=== PATIENT | female | born 1945 | race Caucasian/White ===

== ENCOUNTER 2017-05-31 07:48 | Outpatient (CLI) | payer MEDICARE, BC | END 2017-05-31 07:49 | disposition home or self-care (01) | LOC: BICMAMMO 07:48 | PROVIDERS: ATTEND Internal Medicine | DX: Z12.31 Encounter for screening mammogram for malignant neoplasm of breast (principal); R92.1 Mammographic calcification found on diagnostic imaging of breast | CPT/HCPCS: 77063; 77067 ==

== ENCOUNTER 2017-10-23 12:49 | Outpatient (CLI) | payer MEDICARE, BC ==
--- NOTE | 2017-10-23 13:52 | CT ---
CT CHEST WITHOUT CONTRAST: HISTORY: Chronic cough. COMPARISON: Chest radiograph from 08/04/2017. FINDINGS: There is a peripheral triangular-shaped pleural-based nodule, measuring up to 1.3 cm, at the peripher al aspect of the right upper lobe, series 3, image 13. There is a calcified granuloma in the right l karen base. Small calcified granuloma in the left lung base. Small calcified right hilar lymph nodes. The sternum, manubrium, and visualized portions of the clavicles are intact. No thoracic spine compr ession fracture. The upper abdomen is unremarkable. Extensive coronary artery calcifications. No adenopathy. The thyroid is unremarkable. IMPRESSION: 1. Triangular-shaped pleural-based mass in the right upper lobe, measuring up to 1.3 cm. This is no t definitively malignant. A follow-up CT in three months is recommended. If there is any growth, bi opsy would be recommended at that time. 2. Extensive coronary artery calcifications. 3. No evidence for pneumonia. POS: TPC
== END 2017-10-23 12:50 | disposition home or self-care (01) ==
LOC: CT 12:49
PROVIDERS: ATTEND Internal Medicine
DX: R05 Cough (principal); I25.10 Atherosclerotic heart disease of native coronary artery without angina pectoris; R91.1 Solitary pulmonary nodule
CPT/HCPCS: 71250

== ENCOUNTER 2018-01-28 13:04 | Outpatient (CLI) | payer MEDICARE, BC | END 2018-01-28 13:05 | disposition home or self-care (01) | LOC: BICCT 13:04 | PROVIDERS: ATTEND Internal Medicine | DX: R91.1 Solitary pulmonary nodule (principal); G47.33 Obstructive sleep apnea (adult) (pediatric); G25.81 Restless legs syndrome | CPT/HCPCS: 71250 ==

== ENCOUNTER 2018-06-02 07:49 | Outpatient (CLI) | payer MEDICARE, BC | END 2018-06-02 07:50 | disposition home or self-care (01) | LOC: BICMAMMO 07:49 | PROVIDERS: ATTEND Internal Medicine | DX: Z12.31 Encounter for screening mammogram for malignant neoplasm of breast (principal) | CPT/HCPCS: 77063; 77067 ==

== ENCOUNTER 2018-07-28 10:20 | Outpatient (CLI) | payer MEDICARE, BC ==
[~2018-07-28 10:20] MED LIST: Iopamidol 370 76% 100 ML VIAL ONE
--- NOTE | 2018-07-28 13:00 | CT ---
CT CHEST WITH CONTRAST: INDICATIONS: Pulmonary nodule. Followup. COMPARISON: Noncontrast CT chest from 01/28/2018. FINDINGS: The prior punctate, ill-defined, anterior right middle lobe nodule has resolved. Subpleural nodular density of the superolateral right hemithorax overlying the right apex is redemonstrated, slightly de creased in volume, approximately 9 mm in diameter. No new suspicious nodule. There is respiratory motion artifact, which does produce a generalized haz iness of the bilateral pulmonary parenchyma, diffusely. [id number], no lobar consolidation, effu chris, or evidence of discrete pneumothorax. There is dense coronary artery calcium involving the lef t and right coronary arterial branches. Cardiac valvular calcification is also seen. IMPRESSION: 1. Resolved prior small, ill-defined right middle lobe nodule. 2. Slight reduction in volume of subpleural right apical pulmonary nodule. Recommend continued six-month followup. POS: LYNNETTE
== END 2018-07-28 10:21 | disposition home or self-care (01) ==
LOC: CT 10:20
PROVIDERS: ATTEND Internal Medicine
DX: R91.1 Solitary pulmonary nodule (principal); R05 Cough; G47.33 Obstructive sleep apnea (adult) (pediatric)
CPT/HCPCS: 71260; Q9967

== ENCOUNTER 2018-11-10 14:06 | Outpatient (CLI) | payer MEDICARE, BC ==
--- NOTE | 2018-11-10 14:23 | RAD ---
Exam: Chest 2 views COMPARISON: 06/07/2016, 08/04/2017 HISTORY: Dyspnea FINDINGS: Normal cardiac silhouette. Pulmonary vessels and hilum are normal. Costophrenic angles are clear. Chronic changes, without consolidation or mass. No pneumothorax or osseous abnormal bodies. IMPRESSION: No acute cardiopulmonary process.
== END 2018-11-10 14:07 | disposition home or self-care (01) ==
LOC: RAD 14:06
PROVIDERS: ATTEND Internal Medicine
DX: R06.00 Dyspnea, unspecified (principal)
CPT/HCPCS: 71046

== ENCOUNTER 2018-11-25 10:56 | Outpatient (CLI) | payer MEDICARE, BC ==
--- NOTE | 2018-11-25 11:29 | RAD ---
XR Chest Pa Lat @ [facility] HISTORY: Dyspnea COMPARISON: 11/10/2018 study. FINDINGS: Heart size and mediastinum are within normal limits. The lungs are clear of any infiltrativ e process. There are mild arthritic changes of the spine. IMPRESSION: No active intrathoracic disease. Stable chest.
== END 2018-11-25 10:57 | disposition home or self-care (01) ==
LOC: RAD 10:56
PROVIDERS: ATTEND Internal Medicine
DX: R06.00 Dyspnea, unspecified (principal)
CPT/HCPCS: 36415; 71046; 82785; 85025

== ENCOUNTER 2019-06-08 07:33 | Outpatient (CLI) | payer MEDICARE, BC ==
--- NOTE | 2019-06-08 08:32 | MMO ---
Bilateral MAMMO Bilat Screen [facility]. CLINICAL HISTORY: Patient is 73 years old and is seen for screening. The patient has no family history of breast cancer. The patient has no personal history of cancer. The patient has a history of left Excisional Biopsy at age 33 - benign. VIEWS: The views performed were: bilateral craniocaudal with tomosynthesis and bilateral mediolateral oblique with tomosynthesis. FILMS COMPARED: The present examination has been compared to prior imaging studies performed at [facility] [place] on 05/27/2015, 05/29/2016, 05/31/2017 and 06/02/2018. This study has been interpreted with the assistance of computer-aided detection. MAMMOGRAM FINDINGS: There are scattered fibroglandular densities. There are stable benign appearing calcifications seen in both breasts. There are no suspicious masses, suspicious calcifications, or new areas of architectural distortion. IMPRESSION: THERE IS NO MAMMOGRAPHIC EVIDENCE OF MALIGNANCY. A ROUTINE FOLLOW-UP MAMMOGRAM IN 1 YEAR IS RECOMMENDED. THE RESULTS OF THIS EXAM WERE SENT TO THE PATIENT. ACR BI-RADS Category 2 - Benign finding MAMMOGRAPHY NOTE: 1. A negative mammogram report should not delay a biopsy if a dominant of clinically suspicious mass is present. 2. Approximately 10% to 15% of breast cancers are not detected by mammography. 3. Adenosis and dense breasts may obscure an underlying neoplasm. Reported by: CAPO COY MD Electonically Signed: [id number]
== END 2019-06-08 07:34 | disposition home or self-care (01) ==
LOC: BICMAMMO 07:33
PROVIDERS: ATTEND Internal Medicine
DX: Z12.31 Encounter for screening mammogram for malignant neoplasm of breast (principal); Z91.89 Other specified personal risk factors, not elsewhere classified
CPT/HCPCS: 77063; 77067

== ENCOUNTER 2019-06-18 18:58 | Inpatient (IN) | payer MEDICARE, BC ==
[2019-06-18 19:27] LABS: #Basophils 0.1 thou/uL (0.0-0.2); #Eosinphils 0.2 thou/uL (0.0-0.7); #Lymphocytes 1.7 thou/uL (1.20-3.40); #Monocytes 0.5 thou/uL (0.11-0.59); #Neutrophils 4.3 thou/uL (1.40-6.50); %Basophils 1.4 % (0.0-1.0); %Eosinophils 3.4 % (0.0-10.0); %Lymphocytes 25.2 % (21.0-51.0); %Monocytes 7.2 % (0.0-10.0); %Neutrophils 62.9 % (42.0-75.0); Hemoglobin 13.9 g/dL (12.0-16.0); Mean Corpuscular HGB CONC 31.1 g/dL (32.0-36.0); Mean Corpuscular Hemoglobin 28.1 pg (27.0-31.0); Mean Corpuscular Volume 90.5 fL (78.0-98.0); Mean Platelet Volume 8.6 fL (7.4-10.4); Platelet Count 252 thou/uL (130-400); RBC Distribution Width 13.3 % (11.5-14.5); Red Blood Cell (RBC) Count 4.94 mill/uL (4.20-5.40); White Blood Cell (WBC) Count 6.9 thou/uL (4.8-10.8)
--- NOTE | 2019-06-18 19:43 | RAD ---
XR Chest 1 View Portable History: Chest pain Comparison: Radiograph November 2018 Findings: Heart size is enlarged. Lungs are hypoinflated with vascular crowding. No pneumothorax. No effusion. Impression: Lung hypoinflation with vascular crowding and spurious enlargement of the cardiac silhoue tte.
[2019-06-18 19:54] LABS: ALT (SGPT) 19 U/L (8-55); AST (SGOT) 32 U/L (5-34); Albumin 4.5 g/dL (3.4-4.8); Alkaline Phosphatase 38 U/L (40-110); Anion Gap 20 mmol/L (10-20); BUN (Urea Nitrogen) 22 mg/dL (9.8-20.1); Bilirubin, Total 0.4 mg/dL (0.2-1.2); CK (CPK) 85 U/L (29-168); Calc. Creatinine Clearance 0 mL/min (70-130); Calcium 9.8 mg/dL (7.8-10.44); Carbon Dioxide 20 mmol/L (23-31); Chloride 104 mmol/L (98-107); Estimated GFR-MDRD 57; Globulin 3.1 g/dL (2.4-3.5); Glucose 107 mg/dL (83-110); Potassium 4.7 mmol/L (3.5-5.1); Protein, Total 7.6 g/dL (6.0-8.3); Sodium 139 mmol/L (136-145)
[2019-06-18] MEDS ORDERED: Nitroglycerin 2% Ointment 1 INCH/1 GM Packet ONE (19:59)
[2019-06-18] MEDS ORDERED: Aspirin Chewable 81 MG TAB ONE (19:59)
[2019-06-18] MEDS ORDERED: Labetalol HCl 100 MG/20 ML VIAL ONE (20:40)
[2019-06-18] MEDS ORDERED: Labetalol HCl 100 MG/20 ML VIAL SLOW IVP SCH (21:00)
[2019-06-18] MEDS ORDERED: Acetaminophen 325 MG TAB PO PRN (22:31)
[2019-06-18] MEDS ORDERED: Ondansetron ODT 4 MG TAB SL PRN (22:31)
[2019-06-18] MEDS ORDERED: Ondansetron PF 4 MG/2 ML Vial IVP PRN (22:31)
[2019-06-18 22:42] VITALS: BMI 45.1
[2019-06-18 23:37] LABS: Troponin I 0.717 ng/mL (< 0.028)
[2019-06-18] MEDS ORDERED: PROVENTIL INHALER 6.7 G (200 INHALATIONS) INH PRN (23:54)
[2019-06-18] MEDS ORDERED: Magnesium 2 GM/50 ML 2 GM in Premix Bag 1 BAG IVPB SCH (23:59)
[2019-06-19] MEDS ORDERED: Nitroglycerin 0.4 MG TAB (25 Tab Bottle) SL PRN ×3 (00:04→15:34)
[2019-06-19] MEDS ORDERED: HumaLOG 300 UNITS/3 ML VIAL SC PRN ×2 (00:04)
[2019-06-19] MEDS ORDERED: Dextrose 5% in Water 1,000 ML IV PRN (00:04)
[2019-06-19] MEDS ORDERED: Dextrose 50% Abboject 50 ML SYRINGE SLOW IVP PRN (00:04)
[2019-06-19] MEDS ORDERED: Heparin 25,000 units/D5W 500 ML IVPB SCH (00:15)
[2019-06-19] MEDS ORDERED: Heparin 10,000 UNITS/ 10 ML VIAL SLOW IVP SCH (00:15)
[2019-06-19] MEDS ORDERED: Enoxaparin Sodium 100 MG/ML SYRINGE SC SCH ×2 (00:30→09:00)
[2019-06-19] MEDS ORDERED: Enoxaparin Sodium 30 MG/0.3 ML SYRINGE SC SCH ×2 (00:30→09:00)
[2019-06-19] MEDS: Dextrose 5 %-0.45 % NaCl 1,000 ML IV SCH ×2 (00:44→21:28)
[2019-06-19 01:44] LABS: Hemoglobin 12.5 g/dL (12.0-16.0); Platelet Count 215 thou/uL (130-400)
[2019-06-19 02:35] LABS: CKMB 29.1 ng/mL (0-6.6)
--- NOTE | 2019-06-19 02:47 | HP ---
This is AURELIO Mascorro dictating a report for Jhony Larson MD. TIME OF ASSESSMENT: 2299. CHIEF COMPLAINT: Chest pain. HISTORY OF PRESENT ILLNESS: Ms. Gary is a 73-year-old woman, who presents with complaints of sudden onset chest pain that started around 5:00 pm this evening. The patient states she was watching television when it came on suddenly on the left side of her chest which she describes as a pressure and reports having pain in her left arm as well. The pain also radiated to both sides of her neck and jaw. The patient states the pain was a 9/10 in severity and persisted until she arrived to the emergency department and was given nitroglycerin. She states her pain then subsided to a 5/10. She had been given 324 mg of aspirin and 1 inch of Nitro-Bid. The patient was noted to be hypertensive with a blood pressure of 256/107, which improved to 160/70 after given labetalol as well as a Nitro-Bid. The patient states that since then, her pain has been "flaring" at times, but only for seconds to a minute. She states the pain then eases off quickly. It has not reached a level of intensity that it was when it first began. The patient has a known history of coronary artery disease and underwent a coronary artery stent placement in 2002. She had an EKG done in the emergency department that showed normal sinus rhythm. She had Q-waves in V1 and V2 as well as changes consistent with LVH. Initial laboratory studies showed a normal troponin. Her second troponin was elevated at 0.717. She was also noted to have low magnesium of 1.3. Laboratory studies otherwise notable for a BUN of 22, creatinine of 0.95, GFR of 57. REVIEW OF SYSTEMS: The patient states she has been feeling well and herself recent days and denies having any diaphoresis, lightheadedness, nausea, or vomiting. Denies any abdominal pain or cramping. Reports having cramping in her legs as of recently, which she states feels like charley horses. Denies any history of electrolyte disturbances. PAST MEDICAL HISTORY: 1. CAD. 2. Obesity. 3. Diabetes mellitus. 4. Hyperlipidemia. 5. Hypertension. 6. GERD. 7. Hypothyroidism. PAST SURGICAL HISTORY: 1. Coronary artery stent in 2002 x1. 2. Hysterectomy. 3. Lumpectomy. 4. Appendectomy. 5. Tonsillectomy. SOCIAL HISTORY: The patient denies any tobacco use, alcohol consumption, or illicit drug use. ALLERGIES: NO KNOWN DRUG ALLERGIES. CURRENT MEDICATIONS: 1. Atorvastatin. 2. Praluent. 3. TriCor. 4. Valsartan. 5. Metoprolol tartrate. 6. Spironolactone. 7. Metformin. 8. Novolin. 9. Jardiance. 10. Pantoprazole. 11. Levothyroxine. 12. Ventolin HFA. 13. Montelukast. 14. Vitamin D3. 15. CoQ10. 16. Citrucel. 17. Claritin. 18. Fish oil. PHYSICAL EXAMINATION: GENERAL: The patient appears well developed, well nourished, is in no acute distress. She is found resting comfortably in bed. VITAL SIGNS: Temperature 97.9, pulse 70, respirations 16, O2 saturation 97% on room air, blood pressure 138/75. Current pain level is 4/10 in severity. HEENT: Normocephalic and atraumatic. Pupils are equal, round, and reactive to light. Sclerae without icterus. Oropharynx is clear. NECK: Supple. No lymphadenopathy. LUNGS: Clear to auscultation bilaterally without any wheezes, rales, or rhonchi. CARDIAC: Regular rate and rhythm without audible murmurs, rubs, or gallops. No chest wall tenderness to palpation. ABDOMEN: Soft, nontender, nondistended. Normoactive bowel sounds present. No guarding or rigidity. Obese. EXTREMITIES: No lower leg swelling or edema. No calf tenderness. NEUROLOGICAL: Alert and oriented x3. No neuro deficits. SKIN: Warm and dry. IMAGING DATA: Chest x-ray demonstrated lung hypoinflation with vascular crowding and heart size is enlarged. IMPRESSION AND PLAN: Ms. Gary is a 73-year-old woman, presenting with chest pain, being admitted for the followin. [id number] myocardial infarction. The patient with chest pain that resolved after nitroglycerin and Nitro-Bid. Initial troponin negative, however, second troponin has come back 0.717. Following discussion with Dr. Booker, decision was made to start Lovenox 1 mg/kg. We will continue to trend remaining troponins. The patient with mild discomfort at present, which she states has been flaring on and off since arrival to the ED. We will obtain a repeat EKG to assess for any dynamic changes. Consultation has been placed to Cardiology. 2. Hypomagnesemia. The patient with lower leg cramping, likely due to low magnesium. We will replace and continue to monitor. 3. Hypertension. Much improved. Continue to monitor blood pressure. 4. Diabetes mellitus. Monitor glucose. Insulin sliding scale initiated. 5. Hypothyroidism. Resume home medications once verified. 6. Gastrointestinal prophylaxis with pantoprazole, which she takes at home. 7. Code status, full. Surrogate decision maker is her , Vaibhav Gary. The patient's case was discussed with Dr. James, who agrees with plan of care as described above. Job ID: [id number]
[2019-06-19] MEDS: Levothyroxine Sodium 112 MCG TAB PO SCH (05:35)
[2019-06-19] MEDS: Levothyroxine Sodium 25 MCG TAB PO SCH (05:35)
[2019-06-19 08:04] LABS: Hemoglobin 12.4 g/dL (12.0-16.0); Mean Corpuscular HGB CONC 32.5 g/dL (32.0-36.0); Mean Corpuscular Hemoglobin 29.4 pg (27.0-31.0); Mean Corpuscular Volume 90.5 fL (78.0-98.0); Mean Platelet Volume 8.4 fL (7.4-10.4); Platelet Count 212 thou/uL (130-400); RBC Distribution Width 13.3 % (11.5-14.5); Red Blood Cell (RBC) Count 4.23 mill/uL (4.20-5.40)
[2019-06-19 08:31] LABS: Anion Gap 13 mmol/L (10-20); BUN (Urea Nitrogen) 19 mg/dL (9.8-20.1); Calc. Creatinine Clearance 110 mL/min (70-130); Calcium 9.5 mg/dL (7.8-10.44); Carbon Dioxide 25 mmol/L (23-31); Chloride 106 mmol/L (98-107); Estimated GFR-MDRD 58; Glucose 165 mg/dL (83-110); Magnesium 1.8 mg/dL (1.6-2.6); Potassium 4.8 mmol/L (3.5-5.1); Sodium 139 mmol/L (136-145)
[2019-06-19] MEDS ORDERED: Non-Formulary Item 1 EACH (Levothyroxine Sodium [Levothyroxine Sodium] 137 MCG) PO SCH (09:00)
[2019-06-19] MEDS: Metoprolol Tartrate 100 MG TAB PO SCH ×2 (09:00→20:46)
[2019-06-19] MEDS: Loratadine 10 MG TAB PO SCH (09:00)
[2019-06-19] MEDS: Citrucel 500 MG TAB PO SCH (09:00)
[2019-06-19] MEDS: Aspirin 325 mg Enteric Coated Tablet PO SCH (09:00)
[2019-06-19] MEDS: Valsartan 80 MG TAB PO SCH (09:00)
[2019-06-19] MEDS: Spironolactone 25 MG TAB PO SCH (09:00)
[2019-06-19] MEDS ORDERED: Iopamidol 370 76% 100 ML VIAL ONE (09:45)
[2019-06-19] MEDS ORDERED: Heparin (Artline) 1,000 ML ONE (12:18)
[2019-06-19] MEDS ORDERED: Heparin 10,000 UNITS/1 ML VIAL ONE (12:18)
[2019-06-19] MEDS ORDERED: Acetaminophen 325 MG TAB PO PRN (12:43)
[2019-06-19] MEDS ORDERED: Communication Order-Pharmacy FS SCH (14:15)
[2019-06-19] MEDS ORDERED: Midazolam HCl 2 mg/2 ml Vial ONE (14:43)
[2019-06-19] MEDS ORDERED: Fentanyl 100 MCG/2 ML VIAL ONE (14:44)
[2019-06-19] MEDS ORDERED: Protamine Sulfate 50 MG/5 ML VIAL ONE (15:07)
[2019-06-19] MEDS ORDERED: Nitroglycerin 100MG/250ML BOT 0 ML ONE (15:07)
[2019-06-19] MEDS ORDERED: Nitroglycerin 4.9 GM Bottle ONE (15:08)
[2019-06-19] MEDS ORDERED: Sodium Chloride 0.9% 200 ML IV PRN (15:34)
[2019-06-19] MEDS ORDERED: Acetaminophen/Codeine 30-300mg Tablet PO PRN ×2 (15:34)
[2019-06-19] MEDS ORDERED: Sodium Chloride 0.9% 1,000 ML IV SCH (15:45)
--- NOTE | 2019-06-19 19:00 | PDOC.HOSPP ---
- Subjective Encounter Date: 06/19/19 Encounter Time: 18:59 Subjective: The patient states that her chest pain has resolved with blood thinner. She reported pressure in her back esterday that was radiating to her jaw and her arm. She has history of silent heart attack in the past. No chest pain while waling. No SOB while walking. - Objective Vital Signs & Weight: Vital Signs (12 hours) Temp Pulse Resp BP Pulse Ox 06/19/19 15:54 97.5 F L 57 L 18 157/76 H 97 06/19/19 10:58 98.7 F 60 20 156/70 H 95 06/19/19 08:00 95 06/19/19 07:27 98.4 F 68 18 152/70 H 95 Weight Weight 297 lb 4.8 oz I&O: 06/18/19 06/19/19 06/20/19 06:59 06:59 06:59 Intake Total 440 Balance 440 Result Diagrams: 06/19/19 07:45 06/19/19 07:45 Additional Labs: Accuchecks 06/19/19 06/19/19 06/19/19 17:05 11:05 06:46 POC Glucose 168 H 148 H 161 H Hospitalist ROS - Review of Systems Constitutional: denies: fever, chills - Medication Medications: Active Medications Generic Name Dose Route Start Last Admin Trade Name Leslee PRN Reason Stop Dose Admin Acetaminophen 650 mg 06/19/19 12:43 06/19/19 13:24 Tylenol PO 650 mg Q6H PRN Administration Pain Aspirin 325 mg 06/19/19 09:00 06/19/19 09:00 Ecotrin PO 325 mg DAILY STELLA Administration Cholecalciferol 5,000 units 06/19/19 09:00 06/19/19 09:00 Vitamin D3 PO 5,000 units DAILY STELLA Administration Dextrose/Sodium Chloride 1,000 mls @ 50 mls/hr 06/19/19 00:15 06/19/19 00:44 D5 1/2 Ns IV 1,000 mls .Q20H STELLA Administration Sodium Chloride 1,000 mls @ 125 mls/hr 06/19/19 15:45 06/19/19 18:30 Normal Saline 0.9% IV 06/19/19 21:45 1,000 mls .Q8H STELLA Administration Levothyroxine Sodium 112 mcg 06/19/19 06:00 06/19/19 05:35 Synthroid PO 112 mcg 0600 STELLA Administration Levothyroxine Sodium 25 mcg 06/19/19 06:00 06/19/19 05:35 Synthroid PO 25 mcg 0600 STELLA Administration Loratadine 10 mg 06/19/19 09:00 06/19/19 09:00 Claritin PO 10 mg DAILY STELLA Administration Methylcellulose 500 mg 06/19/19 09:00 06/19/19 09:00 Citrucel PO 500 mg DAILY STELLA Administration Metoprolol Tartrate 100 mg 06/19/19 09:00 06/19/19 09:00 Lopressor PO 100 mg BID STELLA Administration Sodium Chloride 10 ml 06/19/19 09:00 06/19/19 09:01 Flush - Normal Saline IVF Not Given Q12HR STELLA Spironolactone 25 mg 06/19/19 09:00 06/19/19 09:00 Aldactone PO 25 mg DAILY STELLA Administration Valsartan 320 mg 06/19/19 09:00 06/19/19 09:00 Diovan PO 320 mg DAILY STELLA Administration - Exam General Appearance: NAD, awake alert Eye: PERRL, anicteric sclera ENT: normocephalic atraumatic, no oropharyngeal lesions Neck: supple, no JVD Heart: RRR, no murmur, no gallops, no rubs Respiratory: CTAB, no wheezes, no rales, no ronchi Gastrointestinal: soft, non-tender, non-distended, normal bowel sounds Extremities: no cyanosis, no clubbing, no edema Skin: normal turgor, no lesions, no rashes Neurological: cranial nerve grossly intact, normal sensation to touch, no focal deficits, no new deficit Hosp A/P - Plan Cardiac cath: two vessel disease LAD and RCA This is 73 year old female with past medical history of type II diabetes, hyperlipidemia, hypertension who presented with chest pain radiating to her jaw NSTEMI - troponins elevated to 3 - cardiology was consulted, cath was performed and showed 2 vessel disease LAD and RCA with largest stenosis 50%. She has stent in RCA - chest X ray normal - continue aspirin, statin, valsartan - monitor overnight and d/deepika am Hypertension Hyperlipidemia - continue metoprolol, spironolactone, valsartan Hypothyroidism - levothyroxine Code status: full code'
--- NOTE | 2019-06-19 20:51 | CON ---
DATE OF CONSULTATION: HISTORY OF PRESENT ILLNESS: Lalita Gary is a 73-year-old white female, who has had long-standing problems with labile blood pressure. In 2002, she underwent Myoview treadmill testing, which revealed a fixed anterior wall defect. In February 2003, she underwent cardiac catheterization in [place]. She had ejection fraction of 55%. The right coronary artery had a 90% mid stenosis, but otherwise unremarkable coronary arteries. She returned one month later and underwent placement of a Cypher 2.5 x 13 mm stent in the distal right posterior descending. 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 I initially evaluated her in April 2006 and she has been followed intermittently since that time. She had normal Cardiolite in November 2009 and November 2016. She also had a normal cardiac PET in January 2018. She was last seen in the office in January 2019 and only complained of chest discomfort when coughing. Five days ago, she had an episode of lower chest pressure and burning that lasted approximately 1 hour and then spontaneously resolved. Then, yesterday at approximately 5:15 p.m., she again had onset of same type discomfort, however, it did not resolve. She came to the emergency room, was given sublingual nitroglycerin, Lovenox, and eventually this resolved after approximately 6 hours. She denies any shortness of breath, nausea, vomiting, or diaphoresis with this. However, she did have bilateral jaw discomfort. PAST MEDICAL HISTORY: Hypertension, diabetes, hypercholesterolemia, obstructive sleep apnea, and obesity. Also had hypothyroidism, diabetes mellitus, GERD, and coronary artery disease. OPERATIONS: Right posterior descending artery drug-eluting stent in 2002, hysterectomy, lumpectomy, appendectomy, tonsillectomy, repair of right femoral artery pseudoaneurysm. SOCIAL HISTORY: She does not smoke. She rarely drinks. 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 FAMILY HISTORY: Father had myocardial infarction and was from a myocardial infarction. Mother had myocardial infarction, underwent CABG. REVIEW OF SYSTEMS: A 12-point review of systems is otherwise unremarkable. MEDICATIONS: 1. Praluent 75 mg q.2 weeks. 2. Atorvastatin 80 at bedtime. 3. Jardiance 25 mg daily. 4. Tricor 145 daily. 5. Insulin. 6. Levothyroxine 137 mcg daily. 7. Claritin 10 mg daily. 8. Metformin 2000 mg nightly. 9. Metoprolol 100 mg b.i.d. 10. Ranger-3 fatty acids 1000 daily. 11. Pantoprazole 40 every other day. 12. Aldactone 25 mg daily. 13. Valsartan 320 daily. 14. Ventolin 2 puffs inhaler. ALLERGIES: NONE. PHYSICAL EXAMINATION: VITAL SIGNS: BP is 156/70, pulse of 60. HEENT: PERRL. NECK: Supple. CHEST: Clear. CARDIAC: S1 and S2 normal without any S3, S4, or murmurs. Carotid upstrokes normal without bruits. Dorsalis pedis and posterior tibial pulses are intact. ABDOMEN: Obese. Normal bowel sounds. No tenderness. EXTREMITIES: Revealed no clubbing, cyanosis, or edema. NEUROLOGIC: Grossly intact. SKIN: Warm and dry. LABORATORY DATA: EKG reveals normal sinus rhythm with poor R-wave progression. CBC is unremarkable. Sodium 139, potassium 4.8, chloride 106, carbon dioxide 25, BUN 19, creatinine 0.94, CK-MB 29.1. Troponin I 3.139. TSH was normal in January. IMPRESSION: 1. [id number] myocardial infarction. 2. Status post placement of Cypher stent in the right posterior descending artery in 2002. 3. Hypertension. 4. Hypercholesterolemia. 5. Diabetes. 6. Positive family history. 7. Obesity. 8. Obstructive sleep apnea. 9. Hypothyroidism. RECOMMENDATIONS: Fast lipid profile and TSH will be ordered. It was recommended she undergo cardiac catheterization. Risks were discussed including , myocardial infarction, CVA, transfusion, limb loss, renal loss, vascular injury, etc. Risks of intervention with stent placement were discussed including , myocardial infarction, emergent CABG, restenosis, stent thrombosis, vessel perforation, etc. She has never had gastrointestinal bleeding or stroke. She does not have any upcoming surgical procedures. It is recommended that a drug- eluting stent be placed if needed. Job ID: [id number] MTDD
[2019-06-19] MEDS ORDERED: FLU VACC TS2019-20(65YR UP)/PF 180 MCG/0.5 ML SYRINGE IM ONE (21:00)
[2019-06-19] MEDS ORDERED: Fenofibrate Nanocrystallized 145 MG TAB PO SCH (21:00)
[2019-06-19] MEDS ORDERED: Atorvastatin Calcium 40 MG TAB PO SCH (21:00)
[2019-06-20] MEDS: Levothyroxine Sodium 25 MCG TAB PO SCH (05:40)
[2019-06-20] MEDS: Levothyroxine Sodium 112 MCG TAB PO SCH (05:40)
[2019-06-20 05:49] LABS: Hemoglobin 12.4 g/dL (12.0-16.0); Platelet Count 204 thou/uL (130-400)
[2019-06-20 06:11] LABS: Cardiac Risk 3.8 (Less than 4.5)
[2019-06-20 08:18] VITALS: BP 142/68
[2019-06-20] MEDS: Aspirin 325 mg Enteric Coated Tablet PO SCH (08:36)
[2019-06-20] MEDS: Metoprolol Tartrate 100 MG TAB PO SCH (08:36)
[2019-06-20] MEDS: Citrucel 500 MG TAB PO SCH (08:37)
[2019-06-20] MEDS: Valsartan 80 MG TAB PO SCH (08:37)
[2019-06-20] MEDS: Spironolactone 25 MG TAB PO SCH (08:37)
[2019-06-20] MEDS: Loratadine 10 MG TAB PO SCH (08:38)
[2019-06-20] MEDS ORDERED: Clopidogrel Bisulfate 75 MG TAB PO SCH (09:00)
[2019-06-20] MEDS ORDERED: Isosorbide Mononitrate (ER) 30 MG TAB PO SCH (09:00)
[2019-06-20 11:22] VITALS: TEMP 98.1
--- NOTE | 2019-06-20 12:09 | PDOC.CPN ---
- Subjective Date: 06/20/19 Time: 13:00 Interval history: Ms. Gary is feeling well today, very anxious to go home. Groin site looks good, no bleeding, no hematoma. She denies any anginal symptoms or shortness of breath. Denies cough. Denies N/V/D. Denies any episodes of dizziness/lightheadedness, syncope or pre-syncope. Telemetry overnight showed SR, SB HR as low as 40s, isolated episode of 2nd AVB Type I. - Review of Systems General: denies: fever/chills, weight/appetite/sleep changes, night sweats, fatigue Respiratory: denies: cough, congestion, shortness of breath, exercise intolerance Cardiovascular: denies: chest pain, palpitation, edema, paroxysmal nocturnal dyspnea, orthopnea Gastrointestinal: denies: nausea, vomiting, diarrhea, constipation, abd pain, GI bleeding Musculoskeletal: denies: pain, tenderness, stiffness, swelling, arthritis/ arthralgias - Objective Allergies/Adverse Reactions: Allergies Allergy/AdvReac Type Severity Reaction Status Date / Time No Known Allergies Allergy Verified 06/18/19 23:02 Visit Medications: Current Medications Acetaminophen (Tylenol) 650 mg PO Q6H PRN PRN Reason: Pain Last Admin: 06/19/19 13:24 Dose: 650 mg Acetaminophen/Codeine Phosphate (Tylenol #3) 1 tab PO Q4H PRN PRN Reason: Mild Pain (1-3) Acetaminophen/Codeine Phosphate (Tylenol #3) 2 tab PO Q4H PRN PRN Reason: Moderate Pain (4-6) Albuterol Sulfate (Proventil Hfa) 2 puff INH Q4H PRN PRN Reason: SOB &/or Wheezing Aspirin (Ecotrin) 325 mg PO DAILY [facility] Last Admin: 06/20/19 08:36 Dose: 325 mg Atorvastatin Calcium (Lipitor) 80 mg PO HS [facility] Last Admin: 06/19/19 20:46 Dose: 80 mg Cholecalciferol (Vitamin D3) 5,000 units PO DAILY [facility] Last Admin: 06/20/19 08:36 Dose: 5,000 units Clopidogrel Bisulfate (Plavix) 75 mg PO DAILY [facility] Last Admin: 06/20/19 08:37 Dose: 75 mg Dextrose/Water (Dextrose 50%) 25 gm SLOW IVP PRN PRN PRN Reason: Hypoglycemia Fenofibrate (Tricor) 145 mg PO HS [facility] Last Admin: 06/19/19 20:46 Dose: 145 mg Glucagon (Glucagon) 1 mg IM PRN PRN PRN Reason: Hypoglycemia Dextrose/Water (D5w) 1,000 mls @ 0 mls/hr IV .Q0M PRN PRN Reason: Hypoglycemia Sodium Chloride (Normal Saline 0.9%) 200 mls @ 0 mls/hr IV ONE PRN PRN Reason: SBP < 90 Stop: 06/20/19 15:35 Insulin Human Lispro (Humalog) 0 units SC .MILD SLIDING SCALE PRN PRN Reason: Mild Correctional Scale Insulin Human Lispro (Humalog) 0 units SC .BEDTIME SLIDING SC PRN PRN Reason: Bedtime Correctional Scale Isosorbide Mononitrate (Imdur Er) 60 mg PO DAILY [facility] Last Admin: 06/20/19 08:35 Dose: 60 mg Levothyroxine Sodium (Synthroid) 112 mcg PO 0600 [facility] Last Admin: 06/20/19 05:40 Dose: 112 mcg Levothyroxine Sodium (Synthroid) 25 mcg PO 0600 [facility] Last Admin: 06/20/19 05:40 Dose: 25 mcg Loratadine (Claritin) 10 mg PO DAILY [facility] Last Admin: 06/20/19 08:38 Dose: 10 mg Methylcellulose (Citrucel) 500 mg PO DAILY [facility] Last Admin: 06/20/19 08:37 Dose: 500 mg Metoprolol Tartrate (Lopressor) 50 mg PO BID [facility] Nitroglycerin (Nitrostat) 0.4 mg SL Q5MIN PRN PRN Reason: Chest Pain Pantoprazole Sodium (Protonix) 40 mg PO Q2D [facility] Last Admin: 06/20/19 08:40 Dose: 40 mg Sodium Chloride (Flush - Normal Saline) 10 ml IVF Q12HR [facility] Last Admin: 06/20/19 08:42 Dose: Not Given Sodium Chloride (Flush - Normal Saline) 10 ml IVF PRN PRN PRN Reason: Saline Flush Spironolactone (Aldactone) 25 mg PO DAILY [facility] Last Admin: 06/20/19 08:37 Dose: 25 mg Valsartan (Diovan) 320 mg PO DAILY [facility] Last Admin: 06/20/19 08:37 Dose: 320 mg Vital Signs & Weight: Vital Signs Temp Pulse Resp BP BP BP Pulse Ox 06/20/19 11:16 98.1 F 56 L 14 93 L 06/20/19 08:00 142/68 H 06/20/19 07:21 98 F 83 18 94 L 06/20/19 03:09 98.3 F 63 16 140/58 L 96 06/20/19 00:29 148/70 H 136/54 L Weight 290 lb 4.8 oz - Quality Measures CV meds: Beta Latoya: Yes, BOOM/ARB: Yes, Statin: Yes, ASA: Yes, Plavix/Effient/ Brilinta: Yes, Anticoagulant: No - Medication Contraindications No Anticoagulant reason: Treatment not indicated - Physical Exam General: alert & oriented x3, appears well HEENT: mucus membranes moist Neck: no JVD/HJR, no masses Cardiac: regular rate and rhythm, no murmur, S1/S2 Lungs: clear to auscultation, normal breath sounds, no wheeze, rales, rhonchi Abdomen: active bowel sounds, soft, non-tender Extremities: no cyanosis, no clubbing, no edema (right groin site s/ oozing, hematoma) Musculoskeletal: normal range of motion - Labs Result Diagrams: 06/20/19 05:33 06/20/19 05:33 Troponin/CKMB CK-MB (CK-2) 29.1 ng/mL (0-6.6) H* 06/19/19 01:28 Troponin I 3.139 ng/mL (< 0.028) H* 06/19/19 01:28 - EKG Interpretation Status: report reviewed by me EKG Method: Telemetry EKG: normal ST/T - Telemetry Sinus rhythms and dysrhythmias: sinus rhythm (isolated episode 2nd degree AVB type I) - Assessment/Plan Assessment/Plan: 1.CAD, S/P NSTEMI-s/p LHC, 2V CAD (LAD 50% lesion to mid, 50% distal; RCA 50% ostial), normal LVEF. Patent RPDA stent. No obstructive disease. Medical therapy. 2. 2nd Degree AVB Type I-isolated episode, asymptomatic. Denies any presyncope or syncopal episodes. Will decrease metoprolol, recommend outpatient EVM. Our office will call her Saturday for placement. 3. HTN-continue ARB 4. Mixed hyperlipidemia-continue statin 5. ABIMAEL 6. Obesity Okay to discharge home with above medication change. Outpatient EVM to be arranged by our office Saturday. Follow-up with Dr. Gallegos in 3 weeks or sooner if needed.
[2019-06-20] MEDS ORDERED: Metoprolol Tartrate 50 MG TAB PO SCH (21:00)
--- NOTE | 2019-06-20 21:29 | DIS ---
DATE OF ADMISSION: 06/19/2019 DATE OF DISCHARGE: 06/20/2019 DISCHARGE DIAGNOSES: 1. [place] myocardial infarction. 2. Coronary artery disease. 3. Second-degree AV block type 1, asymptomatic. 4. Hypertension. 5. Hyperlipidemia. 6. Obesity. 7. Obstructive sleep apnea. 8. Hypothyroidism. 9. History of prior coronary stent. HISTORY OF PRESENT ILLNESS: This patient is a 73-year-old female with history of coronary artery disease, who presented to the hospital with chest pain. She had a fairly abrupt onset of left-sided chest pain described as pressure, extending into the left arm, it was 9/10, initially had a very elevated blood pressure which promptly improved to 160/70 after labetalol and Nitro-Bid. She did not have immediate EKG changes. Chest x-ray showed hyperinflation with some vascular crowding, but normal size heart. Her magnesium level was slightly low as well. HOSPITAL COURSE: The patient was admitted to the hospital. Her troponins did subsequently elevate to significantly abnormal levels with the highest measured being at 3.139. She was subsequently seen in consultation by Cardiology, who performed left heart catheterization revealing nonocclusive disease including 50% mid LAD lesion, 50% distal LAD lesion, 50% RCA ostial lesion. There did not appear to be a specific culprit lesion or opportunities to significantly intervene. The patient opted for medical management. She did have asymptomatic type 1 AV block, second degree, again managed medically day after the catheterization. The patient felt well and had no further chest pains. Symptoms appeared to be improved. Total cholesterol was 142, triglycerides 185, LDL 68, HDL 37, and she was felt to be stable for discharge to home. PHYSICAL EXAMINATION: VITAL SIGNS: Temperature was 98.1, pulse 56, respirations 14, O2 saturation 93% on room air. GENERAL APPEARANCE: Morbidly obese age-appropriate female, in no distress. She was awake and alert. HEART: Regular without murmurs. LUNGS: Clear. ABDOMEN: Benign. EXTREMITIES: No edema. DISPOSITION: The patient is discharged to home. She is to have a heart healthy diet. ACTIVITY: As tolerated. MEDICATIONS: She will be on: 1. Nitroglycerin p.r.n. 2. Aspirin 325 daily. 3. Plavix 75 mg daily. 4. Isosorbide 60 mg daily. Additionally, the patient will continue with: 1. CoQ10 of 100 mg daily. 2. Citrucel 500 mg daily. 3. Cranberry 500 mg daily. 4. Fish oil 1000 mg daily. 5. B12 of 2500 mcg daily. 6. Vitamin D3 of 5000 units daily. 7. Loratadine 10 mg daily. 8. Ventolin 2 puffs q.4 hours p.r.n. 9. Protonix 40 mg q.2 days. 10. Levothyroxine 137 mcg daily. 11. 70/30, 60 units subcu at bedtime. 12. Jardiance 25 mg daily. 13. 70/30, 80 units subcu q.a.m. 14. Metformin 2000 mg extended release at bedtime. 15. Praluent 75 mg subcu q.14 days. 16. Aldactone 25 mg daily. 17. Metoprolol 50 mg b.i.d. 18. Valsartan 320 mg daily. 19. Fenofibrate 145 mg at bedtime. 20. Atorvastatin 80 mg at bedtime. She is to follow up with Caterina Deng and Dr. Sebastian Gallegos. She can return to the hospital at anytime should she have the need to do so. TIME SPENT: Total time in discharge activities was 31 minutes. Job ID: [id number]
== END 2019-06-20 14:24 | disposition home or self-care (01) | DRG 281 ==
LOC: ERS 18:58 → 2SW 22:37 → OBSVTOIN 06-19 01:42
PROVIDERS: ADMIT Internal Medicine; ATTEND Internal Medicine
PROC: 4A023N7 Measurement of Cardiac Sampling and Pressure, Left Heart, Percutaneous Approach (ICD-10-PCS; principal; 2019-06-19)
PROC: B2111ZZ Fluoroscopy of Multiple Coronary Arteries using Low Osmolar Contrast (ICD-10-PCS; 2019-06-19)
PROC: B2151ZZ Fluoroscopy of Left Heart using Low Osmolar Contrast (ICD-10-PCS; 2019-06-19)
PROC: 4A033BC Measurement of Arterial Pressure, Coronary, Percutaneous Approach (ICD-10-PCS; 2019-06-19)
PROC: 3E02340 Introduction of Influenza Vaccine into Muscle, Percutaneous Approach (ICD-10-PCS; 2019-06-19)
DX: I21.4 Non-ST elevation (NSTEMI) myocardial infarction (principal); Z68.41 Body mass index [BMI] 40.0-44.9, adult; I25.10 Atherosclerotic heart disease of native coronary artery without angina pectoris; Z23 Encounter for immunization; E66.9 Obesity, unspecified; E11.9 Type 2 diabetes mellitus without complications; I10 Essential (primary) hypertension; K21.9 Gastro-esophageal reflux disease without esophagitis; E03.9 Hypothyroidism, unspecified; E83.42 Hypomagnesemia; E78.00 Pure hypercholesterolemia, unspecified; G47.33 Obstructive sleep apnea (adult) (pediatric); I44.1 Atrioventricular block, second degree; E78.2 Mixed hyperlipidemia; Z95.5 Presence of coronary angioplasty implant and graft; Z90.710 Acquired absence of both cervix and uterus; Z90.49 Acquired absence of other specified parts of digestive tract; Z79.51 Long term (current) use of inhaled steroids; Z79.899 Other long term (current) drug therapy; Z79.4 Long term (current) use of insulin
CPT/HCPCS: 36415; 36416; 71045; 76942; 80048; 80053; 80061; 82550; 82553; 82565; 83690; 83735; 83880; 84443; 84484; 85014; 85018; 85025; 85027; 85049; 85347; 85730; 90471; 90662; 93005; 93010; 93458; 94760; 99152; C1769; G0008; J1644; J1650; J2250; J2720; J3010; J3475; Q9967

== ENCOUNTER 2019-07-29 09:59 | Outpatient (CLI) | payer MEDICARE, BC ==
--- NOTE | 2019-07-29 10:26 | CT ---
EXAM: CT of the chest without contrast HISTORY: Lung nodule follow-up COMPARISON: 01/28/2018, 10/23/2017 TECHNIQUE: Multiple contiguous axial images were obtained in a CT the chest without contrast. Coronal and sagittal reformats were performed. FINDINGS: HEART: Normal in size without focal cardiac abnormality. Calcification are seen in the coronary arter ies. MEDIASTINUM: No hilar or mediastinal lymphadenopathy. Evaluation of the mediastinum is limited withou t IV contrast. LUNGS: Calcified granulomas are seen in both lungs. No suspicious pulmonary nodules are seen.. No foc al infiltrates are seen. There is a stable small triangular area of pleural thickening in the peripheral aspect of the right apex. PLEURAL SPACE: No pneumothorax or pleural effusion. CHEST WALL SOFT TISSUES: Unremarkable OSSEOUS STRUCTURES: Unremarkable VISUALIZED SUBDIAPHRAGMATIC STRUCTURES: Unremarkable IMPRESSION: No suspicious pulmonary nodule identified
== END 2019-07-29 10:00 | disposition home or self-care (01) ==
LOC: BICCT 09:59
PROVIDERS: ATTEND Internal Medicine
DX: R91.1 Solitary pulmonary nodule (principal); G47.33 Obstructive sleep apnea (adult) (pediatric)
CPT/HCPCS: 71250

== ENCOUNTER 2020-06-10 08:08 | Outpatient (CLI) | payer MEDICARE, BC | END 2020-06-10 08:09 | disposition home or self-care (01) | LOC: BICMAMMO 08:08 | PROVIDERS: ATTEND Internal Medicine | DX: Z12.31 Encounter for screening mammogram for malignant neoplasm of breast (principal); Z91.89 Other specified personal risk factors, not elsewhere classified | CPT/HCPCS: 77063; 77067 ==

== ENCOUNTER 2020-06-17 09:04 | Outpatient (CLI) | payer MEDICARE, BC ==
--- NOTE | 2020-06-17 11:42 | RAD ---
BILATERAL HIPS: 2 views of each hip for a total of 4 images. INDICATION: Osteoarthritis. FINDINGS: Right Hip: 2 views obtained. Femoral head contour is preserved. Mild degenerative change. Left Hip: 2 views obtained. Femoral head contour is normal. Mild degenerative change. No acute abnormality. IMPRESSION: Mild symmetric degenerative change at both hips. POS: AGW
--- NOTE | 2020-06-17 12:00 | BD ---
BONE DENSITOMETRY USING DEXA: Date: 06/17/2020 HISTORY: Postmenopausal screening for osteoporosis. FINDINGS: Lumbar Spine: BMD (g/cm2) L1 1.067 T-Score: 0.7 Z-Score: 2.9 L2 1.104 T-Score: 0.7 Z-Score: 3.2 L3 1.061 T-Score: -0.2 Z-Score: 2.4 L4 1.073 T-Score: 0.1 Z-Score: 2.8 L1-L4 1.077 T-Score: 0.3 Z-Score: 2.8 Femoral Neck: 0.678 T-Score: -1.5 Z-Score: 0.6 Total Femur: 1.018 T-Score: 0.6 Z-Score: 2.5 The 10 year fracture risk for a major osteoporotic fracture is 16% and for a hip fracture is 2.9%. IMPRESSION: Osteopenia. POS: MZA
== END 2020-06-17 09:05 | disposition home or self-care (01) ==
LOC: BICMAMMO 09:04
PROVIDERS: ATTEND Internal Medicine
DX: Z13.820 Encounter for screening for osteoporosis (principal); M19.90 Unspecified osteoarthritis, unspecified site; M85.80 Other specified disorders of bone density and structure, unspecified site; M16.0 Bilateral primary osteoarthritis of hip; Z78.0 Asymptomatic menopausal state
CPT/HCPCS: 73522; 77080

== ENCOUNTER 2021-01-12 | Day surgery (SDC) | payer MEDICARE, BC | END 2021-01-12 14:30 | disposition home or self-care (01) | PROC: 4A023N7 Measurement of Cardiac Sampling and Pressure, Left Heart, Percutaneous Approach (ICD-10-PCS; principal; 2021-01-12) | PROC: B2111ZZ Fluoroscopy of Multiple Coronary Arteries using Low Osmolar Contrast (ICD-10-PCS; 2021-01-12) ==

== ENCOUNTER 2021-12-07 07:57 | Outpatient (CLI) | payer MEDICARE, BC | END 2021-12-07 07:58 | disposition home or self-care (01) | LOC: BICRAD 07:57 | PROVIDERS: ATTEND Internal Medicine | DX: Z13.83 Encounter for screening for respiratory disorder NEC (principal) | CPT/HCPCS: 71046 ==

== ENCOUNTER 2022-02-11 18:29 | Emergency (ER) | payer MEDICARE, BC ==
[2022-02-11 19:20] LABS: #Eosinphils 0.2 thou/uL (0.0-0.7); #Lymphocytes 1.5 thou/uL (1.20-3.40); #Monocytes 0.5 thou/uL (0.11-0.59); #Neutrophils 5.6 thou/uL (1.40-6.50); %Basophils 0.4 % (0.0-1.0); %Eosinophils 2.2 % (0.0-10.0); %Lymphocytes 18.7 % (21.0-51.0); %Monocytes 6.8 % (0.0-10.0); %Neutrophils 71.9 % (42.0-75.0); Hemoglobin 12.7 g/dL (12.0-16.0); Mean Corpuscular HGB CONC 30.7 g/dL (32.0-36.0); Mean Corpuscular Hemoglobin 28.2 pg (27.0-31.0); Mean Corpuscular Volume 91.9 fL (78.0-98.0); Mean Platelet Volume 8.2 fL (7.4-10.4); Platelet Count 254 thou/uL (130-400); RBC Distribution Width 14.5 % (11.5-14.5); Red Blood Cell (RBC) Count 4.52 mill/uL (4.20-5.40); White Blood Cell (WBC) Count 7.9 thou/uL (4.8-10.8)
[2022-02-11 19:41] LABS: ALT (SGPT) 14 U/L (8-55); AST (SGOT) 23 U/L (5-34); Alkaline Phosphatase 32 U/L (40-110); Anion Gap 13 mmol/L (10-20); BUN (Urea Nitrogen) 21 mg/dL (9.8-20.1); Bilirubin, Total 0.5 mg/dL (0.2-1.2); Calc. Creatinine Clearance 0 mL/min (70-130); Calcium 9.7 mg/dL (7.8-10.44); Carbon Dioxide 24 mmol/L (23-31); Chloride 106 mmol/L (98-107); Estimated GFR 57; Globulin 2.8 g/dL (2.4-3.5); Glucose 112 mg/dL (83-110); Magnesium 1.3 mg/dL (1.6-2.6); Potassium 4.7 mmol/L (3.5-5.1); Protein, Total 6.8 g/dL (5.8-8.1); Sodium 138 mmol/L (136-145)
[2022-02-11] MEDS ORDERED: Metoclopramide HCl 10 MG/2 ML VIAL ONE (20:05)
[2022-02-11] MEDS ORDERED: diphenhydrAMINE 50 MG/ML VIAL ONE (20:05)
== END 2022-02-11 21:57 | disposition home or self-care (01) ==
LOC: ERS 18:29
DX: R07.89 Other chest pain (principal); R51.9 Headache, unspecified; I10 Essential (primary) hypertension; E11.9 Type 2 diabetes mellitus without complications; K21.9 Gastro-esophageal reflux disease without esophagitis; Z95.5 Presence of coronary angioplasty implant and graft; Z79.899 Other long term (current) drug therapy; Z79.84 Long term (current) use of oral hypoglycemic drugs
CPT/HCPCS: 70450; 71045; 80053; 83735; 84484; 85025; 93005; 96361; 96374; 96375; J1200; J2765

== ENCOUNTER 2022-08-02 10:41 | Inpatient (IN) | payer MEDICARE, BC ==
[2022-08-02 11:10] LABS: #Eosinphils 0.2 thou/uL (0.0-0.7); #Monocytes 0.4 thou/uL (0.11-0.59); #Neutrophils 4.3 thou/uL (1.40-6.50); %Basophils 0.8 % (0.0-1.0); %Eosinophils 2.9 % (0.0-10.0); %Lymphocytes 16.2 % (21.0-51.0); %Monocytes 7.5 % (0.0-10.0); %Neutrophils 72.6 % (42.0-75.0); Hemoglobin 12.8 g/dL (12.0-16.0); Mean Corpuscular HGB CONC 33.5 g/dL (32.0-36.0); Mean Corpuscular Hemoglobin 30.7 pg (27.0-31.0); Mean Corpuscular Volume 91.5 fl (78.0-98.0); Platelet Count 193 10x3/uL (130-400); RBC Distribution Width 13.9 % (11.5-14.5); Red Blood Cell (RBC) Count 4.16 mill/uL (4.20-5.40); White Blood Cell (WBC) Count 5.9 10x3/uL (4.8-10.8)
[2022-08-02 11:34] LABS: ALT (SGPT) 13 U/L (8-55); AST (SGOT) 21 U/L (5-34); Albumin 3.6 g/dL (3.4-4.8); Alkaline Phosphatase 27 U/L (40-110); Anion Gap 13 mmol/L (10-20); BUN (Urea Nitrogen) 22 mg/dL (9.8-20.1); Bilirubin, Total 0.5 mg/dL (0.2-1.2); Calc. Creatinine Clearance 0 mL/min (70-130); Calcium 9.1 mg/dL (7.8-10.44); Carbon Dioxide 20 mmol/L (23-31); Chloride 107 mmol/L (98-107); Estimated GFR 60; Globulin 2.7 g/dL (2.4-3.5); Glucose 127 mg/dL (83-110); Potassium 4.9 mmol/L (3.5-5.1); Protein, Total 6.3 g/dL (5.8-8.1); Sodium 135 mmol/L (136-145)
[2022-08-02 12:10] LABS: Bilirubin Negative (Negative); Blood, Urine Negative (Negative); Clarity Clear (Clear); Glucose, Urine (Dipstick) Greater than 1000 mg/dL (Negative); Ketone, Urine Negative (Negative); Leukocyte Negative Leu/uL (Negative); Nitrite Negative (Negative); Protein, Urine (Dipstick) Negative (Neg-Trace); Specific Gravity, Urine 1.015 (1.002-1.036); Urobilinogen Normal mg/dL (Less than 2); pH, Urine 5.5 (5.0-9.0)
[2022-08-02 13:12] LABS: CKMB 2.2 ng/mL (0-6.6)
[2022-08-02] MEDS ORDERED: Aspirin Chewable 81 MG TAB ONE (13:37)
[2022-08-02] MEDS ORDERED: Dextrose 5% in Water 1,000 ML IV PRN (13:53)
[2022-08-02] MEDS ORDERED: HumaLOG 300 UNITS/3 ML VIAL SC PRN (13:53)
[2022-08-02] MEDS ORDERED: Dextrose 50% Abboject 50 ML SYRINGE SLOW IVP PRN (13:53)
[2022-08-02 15:30] LABS: Hemoglobin A1c 6.4 % (4.0-6.0)
[2022-08-02 15:51] VITALS: BMI 41.6
[2022-08-02] MEDS ORDERED: FLU VACC QS2022-23(65YR UP)/PF 240 MCG/0.7 ML SYRINGE IM ONE (16:00)
[2022-08-02 17:07] LABS: Magnesium 1.3 mg/dL (1.6-2.6)
[2022-08-03] MEDS: HumaLOG 300 UNITS/3 ML VIAL SC PRN ×3 (05:56→18:05)
[2022-08-03 06:15] LABS: Cardiac Risk 4.7 (Less than 4.5)
[2022-08-03] MEDS: Aspirin Chewable 81 MG TAB PO SCH (09:26)
[2022-08-03] MEDS ORDERED: Lactated Ringer's 500 ML IV SCH (11:45)
[2022-08-03] MEDS: Meclizine HCl 12.5 MG TAB PO PRN ×2 (12:12→16:31)
[2022-08-03] MEDS ORDERED: Spironolactone 25 MG TAB PO SCH (12:45)
[2022-08-03] MEDS ORDERED: Valsartan 80 MG TAB PO SCH (12:45)
[2022-08-03 15:17] LABS: Troponin I 0.076 ng/mL (< 0.028)
[2022-08-03] MEDS: Metoprolol Tartrate 50 MG TAB PO SCH (20:15)
[2022-08-03] MEDS ORDERED: Atorvastatin Calcium 40 MG TAB PO SCH (21:00)
[2022-08-03] MEDS ORDERED: Fenofibrate Nanocrystallized 145 MG TAB PO SCH (21:00)
[2022-08-03] MEDS ORDERED: HumuLIN 70/30 (300 UNITS/3 ML VIAL) SC SCH ×2 (21:00→23:00)
[2022-08-03] MEDS ORDERED: Loratadine 10 MG TAB PO SCH (21:00)
[2022-08-04] MEDS ORDERED: Acetaminophen 325 MG TAB PO PRN (00:22)
[2022-08-04] MEDS: Meclizine HCl 12.5 MG TAB PO PRN ×2 (00:45→11:01)
[2022-08-04 05:49] LABS: Anion Gap 12 mmol/L (10-20); BUN (Urea Nitrogen) 26 mg/dL (9.8-20.1); Calc. Creatinine Clearance 81 mL/min (70-130); Calcium 9.7 mg/dL (7.8-10.44); Carbon Dioxide 24 mmol/L (23-31); Chloride 107 mmol/L (98-107); Estimated GFR 51; Glucose 128 mg/dL (83-110); Potassium 4.3 mmol/L (3.5-5.1); Sodium 139 mmol/L (136-145)
[2022-08-04] MEDS ORDERED: Levothyroxine 150 MCG TAB PO SCH (06:00)
[2022-08-04] MEDS: Metoprolol Tartrate 50 MG TAB PO SCH (08:27)
[2022-08-04] MEDS: Aspirin Chewable 81 MG TAB PO SCH (08:28)
[2022-08-04 08:39] VITALS: BP 144/80; TEMP 97.5
[2022-08-04] MEDS ORDERED: Icosapent Ethyl 1 GM CAPSULE PO SCH (09:00)
[2022-08-04] MEDS ORDERED: Valsartan 80 MG TAB PO SCH (09:00)
[2022-08-04] MEDS ORDERED: HumuLIN 70/30 (300 UNITS/3 ML VIAL) SC SCH ×2 (09:00→21:00)
[2022-08-04] MEDS ORDERED: Spironolactone 25 MG TAB PO SCH (09:00)
[2022-08-04] MEDS ORDERED: Amlodipine 5 MG TAB PO SCH (09:00)
== END 2022-08-04 11:15 | disposition home or self-care (01) | DRG 149 ==
LOC: ERS 10:41 → 2SW 13:45 → OBSVTOIN 08-03 13:59
PROVIDERS: ADMIT Internal Medicine; ATTEND Internal Medicine
DX: R42 Dizziness and giddiness (principal); R55 Syncope and collapse; E11.9 Type 2 diabetes mellitus without complications; I10 Essential (primary) hypertension; E78.5 Hyperlipidemia, unspecified; K21.9 Gastro-esophageal reflux disease without esophagitis; E03.9 Hypothyroidism, unspecified; R77.8 Other specified abnormalities of plasma proteins; I25.10 Atherosclerotic heart disease of native coronary artery without angina pectoris; Z95.5 Presence of coronary angioplasty implant and graft; Z79.899 Other long term (current) drug therapy; Z79.4 Long term (current) use of insulin; Z79.84 Long term (current) use of oral hypoglycemic drugs; Z79.82 Long term (current) use of aspirin; Z79.890 Hormone replacement therapy; Z90.49 Acquired absence of other specified parts of digestive tract; Z90.710 Acquired absence of both cervix and uterus; Z98.890 Other specified postprocedural states
CPT/HCPCS: 36415; 36416; 71045; 80048; 80053; 80061; 81003; 82553; 83036; 83690; 83735; 83880; 84443; 84484; 85025; 90471; 90662; 93005; 93306; 94760; G0008; G0378; J1650; J1815; J7120

== ENCOUNTER 2022-08-28 07:23 | Outpatient (CLI) | payer MEDICARE, BC | END 2022-08-28 07:24 | disposition home or self-care (01) | LOC: BICCT 07:23 | PROVIDERS: ATTEND Internal Medicine | DX: R42 Dizziness and giddiness (principal) | CPT/HCPCS: 70470 ==

== ENCOUNTER 2022-08-30 10:24 | Outpatient (CLI) | payer MEDICARE, BC | END 2022-08-30 10:25 | disposition home or self-care (01) | LOC: RAD 10:24 | PROVIDERS: ATTEND Internal Medicine Critical Care Medicine | DX: R06.00 Dyspnea, unspecified (principal) | CPT/HCPCS: 71046 ==

== ENCOUNTER 2022-09-05 14:59 | Inpatient (IN) | payer MEDICARE, BC ==
[2022-09-05 15:54] LABS: #Basophils 0.1 thou/uL (0.0-0.2); #Eosinphils 0.2 thou/uL (0.0-0.7); #Lymphocytes 1.9 thou/uL (1.20-3.40); #Monocytes 0.7 thou/uL (0.11-0.59); #Neutrophils 4.7 thou/uL (1.40-6.50); %Basophils 0.7 % (0.0-1.0); %Eosinophils 3.2 % (0.0-10.0); %Lymphocytes 24.8 % (21.0-51.0); %Monocytes 9.4 % (0.0-10.0); Hemoglobin 13.1 g/dL (12.0-16.0); Mean Corpuscular HGB CONC 33.8 g/dL (32.0-36.0); Mean Corpuscular Hemoglobin 30.9 pg (27.0-31.0); Mean Corpuscular Volume 91.4 fl (78.0-98.0); Mean Platelet Volume 8.2 fL (7.4-10.4); Platelet Count 272 10x3/uL (130-400); RBC Distribution Width 13.4 % (11.5-14.5); Red Blood Cell (RBC) Count 4.23 mill/uL (4.20-5.40); White Blood Cell (WBC) Count 7.6 10x3/uL (4.8-10.8)
[2022-09-05 16:05] LABS: Prothrombin Time 13.2 sec (12.0-14.7)
[2022-09-05 16:13] LABS: ALT (SGPT) 11 U/L (8-55); AST (SGOT) 18 U/L (5-34); Albumin 4.2 g/dL (3.4-4.8); Alkaline Phosphatase 28 U/L (40-110); Anion Gap 13 mmol/L (10-20); BUN (Urea Nitrogen) 25 mg/dL (9.8-20.1); Bilirubin, Total 0.4 mg/dL (0.2-1.2); Calc. Creatinine Clearance 0 mL/min (70-130); Calcium 9.7 mg/dL (7.8-10.44); Carbon Dioxide 22 mmol/L (23-31); Chloride 108 mmol/L (98-107); Estimated GFR 56; Glucose 76 mg/dL (83-110); Potassium 4.4 mmol/L (3.5-5.1); Protein, Total 7.2 g/dL (5.8-8.1); Sodium 139 mmol/L (136-145)
[2022-09-05] MEDS ORDERED: Ondansetron PF 4 MG/2 ML Vial IVP PRN (18:32)
[2022-09-05] MEDS ORDERED: Ondansetron ODT 4 MG TAB PO PRN (18:32)
[2022-09-05] MEDS ORDERED: Meclizine HCl 12.5 MG TAB PO PRN (18:32)
[2022-09-05] MEDS ORDERED: Acetaminophen 325 MG TAB PO PRN (18:32)
[2022-09-05] MEDS ORDERED: Labetalol HCl 100 MG/20 ML VIAL SLOW IVP PRN (18:32)
[2022-09-05] MEDS ORDERED: Dextrose 50% Abboject 50 ML SYRINGE SLOW IVP PRN (18:32)
[2022-09-05] MEDS ORDERED: hydrALAZINE 20 MG/ML VIAL SLOW IVP PRN (18:32)
[2022-09-05] MEDS ORDERED: Dextrose 5% in Water 1,000 ML IV PRN (18:32)
[2022-09-05] MEDS ORDERED: Acetaminophen 650 MG Suppository PR PRN (18:32)
[2022-09-05] MEDS ORDERED: HumaLOG 300 UNITS/3 ML VIAL SC PRN (18:32)
[2022-09-05 18:59] VITALS: BMI 40.8
[2022-09-05] MEDS: Loratadine 10 MG TAB PO SCH (22:09)
[2022-09-05] MEDS: Atorvastatin Calcium 40 MG TAB PO SCH (22:09)
[2022-09-05] MEDS: HumuLIN 70/30 100 Unit/ ml Vial SC SCH (22:10)
[2022-09-05] MEDS: Metoprolol Tartrate 50 MG TAB PO SCH (22:10)
[2022-09-05] MEDS: Aspirin 81 mg Enteric Coated Tablet PO SCH (22:10)
[2022-09-05] MEDS: Fenofibrate Nanocrystallized 145 MG TAB PO SCH (22:10)
[2022-09-05] MEDS: metFORMIN XR 500 MG TAB PO SCH (22:10)
[2022-09-06] MEDS: Levothyroxine 150 MCG TAB PO SCH (05:33)
[2022-09-06 06:10] LABS: #Eosinphils 0.2 thou/uL (0.0-0.7); #Lymphocytes 1.7 thou/uL (1.20-3.40); #Monocytes 0.5 thou/uL (0.11-0.59); #Neutrophils 3.9 thou/uL (1.40-6.50); %Basophils 0.4 % (0.0-1.0); %Eosinophils 2.7 % (0.0-10.0); %Lymphocytes 26.9 % (21.0-51.0); %Monocytes 8.2 % (0.0-10.0); %Neutrophils 61.8 % (42.0-75.0); Hemoglobin 12.1 g/dL (12.0-16.0); Mean Corpuscular Hemoglobin 30.2 pg (27.0-31.0); Mean Corpuscular Volume 91.5 fl (78.0-98.0); Mean Platelet Volume 8.3 fL (7.4-10.4); Platelet Count 233 10x3/uL (130-400); RBC Distribution Width 13.5 % (11.5-14.5); White Blood Cell (WBC) Count 6.2 10x3/uL (4.8-10.8)
[2022-09-06 06:26] LABS: Anion Gap 13 mmol/L (10-20); BUN (Urea Nitrogen) 21 mg/dL (9.8-20.1); Calc. Creatinine Clearance 89 mL/min (70-130); Calcium 9.4 mg/dL (7.8-10.44); Carbon Dioxide 22 mmol/L (23-31); Cardiac Risk 2.9 (Less than 4.5); Chloride 106 mmol/L (98-107); Cholesterol 112 mg/dl (< 200 Desired); Estimated GFR 58; Glucose 141 mg/dL (83-110); HDL Cholesterol 39 mg/dL (>60 Neg Risk); LDL Cholesterol, Calculated 43 mg/dL; Potassium 4.4 mmol/L (3.5-5.1); Sodium 137 mmol/L (136-145); Triglycerides 150 mg/dL (Less than 150)
[2022-09-06] MEDS ORDERED: AST PO SCH (09:00)
[2022-09-06] MEDS ORDERED: KRILL PO SCH (09:00)
[2022-09-06] MEDS ORDERED: EPA PO SCH (09:00)
[2022-09-06] MEDS ORDERED: Cranberry 500 MG Capsule PO SCH (09:00)
[2022-09-06] MEDS ORDERED: DHA PO SCH (09:00)
[2022-09-06] MEDS ORDERED: PHOSPHO PO SCH (09:00)
[2022-09-06] MEDS ORDERED: [UNRECOGNIZED DRUG - OTHER] PO SCH (09:00)
[2022-09-06] MEDS: HumuLIN 70/30 100 Unit/ ml Vial SC SCH ×2 (09:07→21:06)
[2022-09-06] MEDS: Icosapent Ethyl 1 GM CAPSULE PO SCH (09:09)
[2022-09-06] MEDS: CO Q-10 CAPSULE 100 MG PO SCH (09:09)
[2022-09-06] MEDS: Amlodipine 5 MG TAB PO SCH (09:12)
[2022-09-06] MEDS: Cholecalciferol 1,000 UNITS (25 MCG) TAB PO SCH (09:12)
[2022-09-06] MEDS: Cyanocobalamin (Vitamin B-12) 1,000 MCG TAB PO SCH (09:12)
[2022-09-06] MEDS: Spironolactone 25 MG TAB PO SCH (09:12)
[2022-09-06] MEDS: Metoprolol Tartrate 50 MG TAB PO SCH ×2 (09:13→21:05)
[2022-09-06] MEDS: Empagliflozin 25 MG TAB PO SCH (09:13)
[2022-09-06] MEDS: Valsartan 80 MG TAB PO SCH (09:59)
[2022-09-06] MEDS: HumaLOG 300 UNITS/3 ML VIAL SC PRN ×2 (12:00→17:46)
[2022-09-06] MEDS ORDERED: Clopidogrel Bisulfate 75 MG TAB PO SCH (13:00)
[2022-09-06 13:31] LABS: INR-International Normal Ratio 1.1; Prothrombin Time 14.2 sec (12.0-14.7)
[2022-09-06 13:32] LABS: PTT 28.8 sec (22.9-36.1)
[2022-09-06 13:33] LABS: D-Dimer Test 0.46 *mcg/mL (0.27-0.43)
[2022-09-06 14:01] LABS: HEX PHOS LA Tube 1 43.6 SEC; HEX PHOS LA Tube 2 39.7 SEC
[2022-09-06] MEDS: Loratadine 10 MG TAB PO SCH (21:05)
[2022-09-06] MEDS: metFORMIN XR 500 MG TAB PO SCH (21:05)
[2022-09-06] MEDS: Atorvastatin Calcium 40 MG TAB PO SCH (21:05)
[2022-09-06] MEDS: Fenofibrate Nanocrystallized 145 MG TAB PO SCH (21:05)
[2022-09-06] MEDS: Aspirin 81 mg Enteric Coated Tablet PO SCH (21:05)
[2022-09-07] MEDS: Levothyroxine 150 MCG TAB PO SCH (05:13)
[2022-09-07] MEDS: HumuLIN 70/30 100 Unit/ ml Vial SC SCH (07:40)
[2022-09-07] MEDS ORDERED: Clopidogrel Bisulfate 75 MG TAB PO SCH (09:00)
[2022-09-07] MEDS: Icosapent Ethyl 1 GM CAPSULE PO SCH (10:12)
[2022-09-07] MEDS: Spironolactone 25 MG TAB PO SCH (10:13)
[2022-09-07] MEDS: Cholecalciferol 1,000 UNITS (25 MCG) TAB PO SCH (10:13)
[2022-09-07] MEDS: Metoprolol Tartrate 50 MG TAB PO SCH (10:14)
[2022-09-07] MEDS: Amlodipine 5 MG TAB PO SCH (10:14)
[2022-09-07] MEDS: CO Q-10 CAPSULE 100 MG PO SCH (10:16)
[2022-09-07] MEDS: Empagliflozin 25 MG TAB PO SCH (10:16)
[2022-09-07] MEDS: Cyanocobalamin (Vitamin B-12) 1,000 MCG TAB PO SCH (10:16)
[2022-09-07] MEDS: Valsartan 80 MG TAB PO SCH (10:17)
[2022-09-07] MEDS ORDERED: Iopamidol-370 76% 500 ML MDV (1 ML CHARGE) ONE (10:43)
[2022-09-07 15:19] VITALS: BP 144/70; TEMP 97
[2022-09-10] MEDS ORDERED: ALIROCUMAB 75 MG/ML SC SCH (09:00)
[2022-09-10 13:20] LABS: Cardiolipin IgA Ab 3.5 APL-U/mL (<14 Negative); Cardiolipin IgG Ab 1.1 GPL-U/mL (<10 Negative); Cardiolipin IgM Ab 1.1 MPL-U/mL (<10 Negative); EliA APS New Method **** NEW METHOD ****
== END 2022-09-07 17:10 | disposition home or self-care (01) | DRG 123 ==
LOC: ERS 14:59 → NEURO 16:35
PROVIDERS: ADMIT Emergency Medicine; ATTEND Internal Medicine
DX: H34.11 Central retinal artery occlusion, right eye (principal); I25.10 Atherosclerotic heart disease of native coronary artery without angina pectoris; E11.9 Type 2 diabetes mellitus without complications; I10 Essential (primary) hypertension; E78.5 Hyperlipidemia, unspecified; K21.9 Gastro-esophageal reflux disease without esophagitis; E03.9 Hypothyroidism, unspecified; Z95.5 Presence of coronary angioplasty implant and graft; Z90.710 Acquired absence of both cervix and uterus; Z79.84 Long term (current) use of oral hypoglycemic drugs; Z79.890 Hormone replacement therapy; Z79.82 Long term (current) use of aspirin; Z79.899 Other long term (current) drug therapy
CPT/HCPCS: 36415; 36416; 70450; 70496; 71045; 80048; 80061; 83090; 84484; 85025; 85300; 85303; 85305; 85307; 85379; 85598; 85610; 85730; 86147; 93005; 93880; 94760; J1650; J1815; Q9967

== ENCOUNTER 2022-09-12 15:17 | Emergency (ER) | payer MEDICARE, BC ==
[2022-09-12 17:37] LABS: #Eosinphils 0.2 thou/uL (0.0-0.7); #Lymphocytes 1.7 thou/uL (1.20-3.40); #Monocytes 0.6 thou/uL (0.11-0.59); #Neutrophils 4.3 thou/uL (1.40-6.50); %Basophils 0.6 % (0.0-1.0); %Eosinophils 3.5 % (0.0-10.0); %Lymphocytes 25.1 % (21.0-51.0); %Monocytes 8.6 % (0.0-10.0); %Neutrophils 62.1 % (42.0-75.0); Hemoglobin 13.4 g/dL (12.0-16.0); Mean Corpuscular HGB CONC 33.5 g/dL (32.0-36.0); Mean Corpuscular Hemoglobin 30.2 pg (27.0-31.0); Platelet Count 262 10x3/uL (130-400); RBC Distribution Width 13.3 % (11.5-14.5); Red Blood Cell (RBC) Count 4.45 mill/uL (4.20-5.40); White Blood Cell (WBC) Count 6.9 10x3/uL (4.8-10.8)
[2022-09-12 17:51] LABS: ALT (SGPT) 11 U/L (8-55); AST (SGOT) 19 U/L (5-34); Albumin 4.2 g/dL (3.4-4.8); Alkaline Phosphatase 30 U/L (40-110); Anion Gap 17 mmol/L (10-20); BUN (Urea Nitrogen) 29 mg/dL (9.8-20.1); Bilirubin, Total 0.3 mg/dL (0.2-1.2); Calc. Creatinine Clearance 0 mL/min (70-130); Calcium 9.9 mg/dL (7.8-10.44); Carbon Dioxide 21 mmol/L (23-31); Chloride 107 mmol/L (98-107); Estimated GFR 44; Globulin 3.2 g/dL (2.4-3.5); Glucose 148 mg/dL (83-110); Potassium 4.9 mmol/L (3.5-5.1); Protein, Total 7.4 g/dL (5.8-8.1); Sodium 140 mmol/L (136-145)
[2022-09-12 17:57] LABS: Prothrombin Time 13.1 sec (12.0-14.7)
[2022-09-12 17:58] LABS: PTT 25.2 sec (22.9-36.1)
== END 2022-09-12 19:36 | disposition home or self-care (01) ==
LOC: ERS 15:17
DX: R53.1 Weakness (principal); E11.9 Type 2 diabetes mellitus without complications; I10 Essential (primary) hypertension; E78.5 Hyperlipidemia, unspecified; K21.9 Gastro-esophageal reflux disease without esophagitis; E03.9 Hypothyroidism, unspecified; Z79.899 Other long term (current) drug therapy; Z79.84 Long term (current) use of oral hypoglycemic drugs; Z79.4 Long term (current) use of insulin
CPT/HCPCS: 36415; 70450; 80053; 84484; 85025; 85610; 85730; 93005

== ENCOUNTER 2023-07-03 13:39 | Outpatient (CLI) | payer MEDICARE, BC | END 2023-07-03 13:40 | disposition home or self-care (01) | LOC: SCSMRI 13:39 | PROVIDERS: ATTEND Psychiatry & Neurology Neurology | DX: M48.061 Spinal stenosis, lumbar region without neurogenic claudication (principal); M51.36 Other intervertebral disc degeneration, lumbar region; M47.816 Spondylosis without myelopathy or radiculopathy, lumbar region | CPT/HCPCS: 72148 ==

== ENCOUNTER 2023-10-23 23:08 | Inpatient (IN) | payer MEDICARE ==
[2023-10-24 00:27] LABS: #Basophils 0.05 10x3/uL (0.0-0.2); %Basophils 0.3 % (0.0-1.0); %Eosinophils 0.9 % (0.0-10.0); %Lymphocytes 5.2 % (21.0-51.0); %Monocytes 8.5 % (0.0-10.0); %Neutrophils 84.8 % (42.0-75.0); Hematocrit 41.8 % (36.0-47.0); Hemoglobin 13.3 g/dL (12.0-16.0); Mean Corpuscular HGB CONC 31.8 g/dL (32.0-36.0); Mean Corpuscular Hemoglobin 29.3 pg (27.0-31.0); Mean Corpuscular Volume 92.1 fL (78.0-98.0); Mean Platelet Volume 10.2 fL (7.4-10.4); Platelet Count 287 10x3/uL (130-400); RBC Distribution Width 14.5 % (11.5-14.5); Red Blood Cell (RBC) Count 4.54 mill/uL (4.20-5.40)
[2023-10-24] MEDS ORDERED: Ondansetron PF 4 MG/2 ML Vial ONE ×2 (00:29→04:34)
[2023-10-24] MEDS ORDERED: Morphine 4 MG/ML VIAL ONE (00:29)
[2023-10-24 00:42] LABS: ALT (SGPT) Less than 5 U/L (8-55); AST (SGOT) 13 U/L (5-34); Albumin 3.7 g/dL (3.4-4.8); Alkaline Phosphatase 31 U/L (40-110); Anion Gap 14 mmol/L (10-20); BUN (Urea Nitrogen) 25 mg/dL (9.8-20.1); Bilirubin, Total 0.6 mg/dL (0.2-1.2); Calc. Creatinine Clearance 0 mL/min (70-130); Calcium 10.4 mg/dL (7.8-10.44); Carbon Dioxide 21 mmol/L (23-31); Chloride 106 mmol/L (98-107); Estimated GFR 49; Globulin 3.4 g/dL (2.4-3.5); Glucose 164 mg/dL (83-110); Potassium 4.5 mmol/L (3.5-5.1); Protein, Total 7.1 g/dL (5.8-8.1); Sodium 136 mmol/L (136-145)
[2023-10-24 00:47] LABS: Troponin I 0.087 ng/mL (< 0.028)
[2023-10-24] MEDS ORDERED: Nitroglycerin 0.4 MG TAB 1 EACH ONE (02:10)
[2023-10-24] MEDS ORDERED: Acetaminophen 325 MG TAB PO PRN (08:01)
[2023-10-24] MEDS ORDERED: Ondansetron PF 4 MG/2 ML Vial IVP PRN (08:01)
[2023-10-24] MEDS ORDERED: Senokot S 8.6-50 MG TAB PO PRN (08:01)
[2023-10-24] MEDS ORDERED: Ondansetron ODT 4 MG TAB PO PRN (08:01)
[2023-10-24] MEDS ORDERED: Acetaminophen 650 MG Suppository PR PRN (08:01)
[2023-10-24 08:43] LABS: Critical Call Chem Troponin I NUR.SM26@0843; Troponin I 0.765 ng/mL (< 0.028)
[2023-10-24] MEDS: Sodium Chloride 0.9% 1,000 ML IV SCH (09:11)
[2023-10-24] MEDS ORDERED: Dextrose 5% in Water 1,000 ML IV PRN (09:28)
[2023-10-24] MEDS ORDERED: Glucagon 1 MG/ML KIT IM PRN (09:28)
[2023-10-24] MEDS ORDERED: Dextrose 50% Abboject 50 ML SYRINGE SLOW IVP PRN (09:28)
[2023-10-24] MEDS ORDERED: Iopamidol-370 76% 500 ML MDV (1 ML CHARGE) ONE (10:18)
[2023-10-24] MEDS ORDERED: Communication Order-Pharmacy FS SCH (10:53)
[2023-10-24 11:13] LABS: Critical Call Chem Troponin I NUR.SM26@1112; Troponin I 1.869 ng/mL (< 0.028)
[2023-10-24] MEDS ORDERED: Enoxaparin 60 MG (0.6 mL) SYRINGE ONE (11:16)
[2023-10-24] MEDS: Enoxaparin 120 MG/0.8 ML SYRINGE SC SCH (11:18)
[2023-10-24 11:22] LABS: Magnesium 1.4 mg/dL (1.6-2.6)
[2023-10-24] MEDS: Magnesium Sulfate 3 GM in Sodium Chloride 0.9% 100 ML IVPB SCH (15:37)
[2023-10-24 17:21] VITALS: BMI 38.9
[2023-10-24] MEDS: Clopidogrel Bisulfate 300 MG TAB PO SCH (20:57)
[2023-10-24] MEDS: Metoprolol Tartrate 25 MG TAB PO SCH (20:58)
[2023-10-24] MEDS: Ranolazine ER 500 MG TAB PO SCH (20:58)
[2023-10-24] MEDS: Amoxicillin/Potassium Clav 875 MG TAB PO SCH (20:58)
[2023-10-24] MEDS: Atorvastatin Calcium 40 MG TAB PO SCH (20:58)
[2023-10-24] MEDS: Famotidine 20 MG TAB PO SCH (20:58)
[2023-10-25 04:48] LABS: #Basophils 0.05 10x3/uL (0.0-0.2); %Basophils 0.7 % (0.0-1.0); %Eosinophils 2.5 % (0.0-10.0); %Lymphocytes 16.2 % (21.0-51.0); %Monocytes 11.6 % (0.0-10.0); %Neutrophils 68.6 % (42.0-75.0); Hematocrit 38.7 % (36.0-47.0); Hemoglobin 12.2 g/dL (12.0-16.0); Mean Corpuscular HGB CONC 31.5 g/dL (32.0-36.0); Mean Corpuscular Hemoglobin 28.2 pg (27.0-31.0); Mean Corpuscular Volume 89.6 fL (78.0-98.0); Mean Platelet Volume 10.5 fL (7.4-10.4); Platelet Count 260 10x3/uL (130-400); RBC Distribution Width 14.7 % (11.5-14.5); Red Blood Cell (RBC) Count 4.32 mill/uL (4.20-5.40)
[2023-10-25 05:15] LABS: Critical Call Chem Troponin I NUR.LC9@0515; Troponin I 2.797 ng/mL (< 0.028)
[2023-10-25 05:27] LABS: ALT (SGPT) 5 U/L (8-55); AST (SGOT) 22 U/L (5-34); Albumin 3.3 g/dL (3.4-4.8); Alkaline Phosphatase 26 U/L (40-110); Anion Gap 15 mmol/L (10-20); BUN (Urea Nitrogen) 27 mg/dL (9.8-20.1); Bilirubin, Total 0.6 mg/dL (0.2-1.2); Calc. Creatinine Clearance 70 mL/min (70-130); Calcium 9.4 mg/dL (7.8-10.44); Carbon Dioxide 19 mmol/L (23-31); Chloride 109 mmol/L (98-107); Estimated GFR 47; Globulin 2.6 g/dL (2.4-3.5); Glucose 161 mg/dL (83-110); Magnesium 1.6 mg/dL (1.6-2.6); Potassium 4.8 mmol/L (3.5-5.1); Protein, Total 5.9 g/dL (5.8-8.1); Sodium 138 mmol/L (136-145)
[2023-10-25] MEDS: Levothyroxine 150 MCG TAB PO SCH (06:02)
[2023-10-25] MEDS ORDERED: Clopidogrel Bisulfate 75 MG TAB PO SCH (09:00)
[2023-10-25] MEDS: Lactated Ringer's 1,000 ML IV SCH (09:24)
[2023-10-25] MEDS: Magnesium 2 GM/50 ML(in water) 2 GM in Premix 1 BAG IVPB SCH (09:25)
[2023-10-25] MEDS: Isosorbide Mononitrate 30 MG ER.TAB PO SCH (09:26)
[2023-10-25] MEDS: Clopidogrel Bisulfate 75 MG TAB PO SCH (09:26)
[2023-10-25] MEDS: Empagliflozin 25 MG TAB PO SCH (09:26)
[2023-10-25] MEDS: Amlodipine 5 MG TAB PO SCH (09:26)
[2023-10-25] MEDS: Aspirin 81 mg Enteric Coated Tablet PO SCH (09:35)
[2023-10-25 10:24] LABS: Critical Call Chem Troponin I TRENDING DOWN; Troponin I 1.987 ng/mL (< 0.028)
[2023-10-25 12:44] LABS: Critical Call Chem Troponin I TRENDING DOWN; Troponin I 1.905 ng/mL (< 0.028)
[2023-10-25] MEDS: HumaLOG 300 UNITS/3 ML VIAL SC PRN (20:46)
[2023-10-26 05:33] LABS: Anion Gap 13 mmol/L (10-20); BUN (Urea Nitrogen) 30 mg/dL (9.8-20.1); Calc. Creatinine Clearance 62 mL/min (70-130); Calcium 9.2 mg/dL (7.8-10.44); Carbon Dioxide 21 mmol/L (23-31); Chloride 108 mmol/L (98-107); Cholesterol 125 mg/dl (< 200 Desired); Estimated GFR 41; Glucose 155 mg/dL (83-110); HDL Cholesterol 31 mg/dL (>60 Neg Risk); LDL Cholesterol, Calculated 54 mg/dL; Potassium 4.4 mmol/L (3.5-5.1); Sodium 138 mmol/L (136-145); Triglycerides 202 mg/dL (Less than 150)
[2023-10-26 05:54] LABS: Hemoglobin A1c 6.3 % (4.0-6.0)
[2023-10-26] MEDS: HumaLOG 300 UNITS/3 ML VIAL SC PRN (06:20)
[2023-10-26 07:00] LABS: #Basophils 0.03 10x3/uL (0.0-0.2); %Basophils 0.5 % (0.0-1.0); %Eosinophils 3.9 % (0.0-10.0); %Lymphocytes 18.2 % (21.0-51.0); %Neutrophils 66.1 % (42.0-75.0); Hematocrit 35.6 % (36.0-47.0); Hemoglobin 11.3 g/dL (12.0-16.0); Mean Corpuscular HGB CONC 31.7 g/dL (32.0-36.0); Mean Corpuscular Hemoglobin 29.5 pg (27.0-31.0); Mean Platelet Volume 11.1 fL (7.4-10.4); Platelet Count 245 10x3/uL (130-400); RBC Distribution Width 14.6 % (11.5-14.5); Red Blood Cell (RBC) Count 3.83 mill/uL (4.20-5.40)
[2023-10-26] MEDS: Lactated Ringer's 1,000 ML IV SCH (16:23)
[2023-10-26] MEDS: Nitroglycerin 0.4 MG TAB (25 Tab Bottle) SL PRN (19:26)
[2023-10-26] MEDS: Enoxaparin 40 MG (0.4 mL) SYRINGE SC SCH (20:19)
[2023-10-26] MEDS: HumuLIN 70/30 100 Unit/ml 10 ml Vial SC SCH (20:34)
[2023-10-26] MEDS ORDERED: Non-Formulary Item 1 EACH (Insulin Aspart Prot/Insuln Asp [Novolog Mix 70-30 Flexpen] 100 SQ SCH (21:00)
[2023-10-26] MEDS ORDERED: HumuLIN 70/30 100 Unit/ml 10 ml Vial SC SCH (21:00)
[2023-10-27 07:16] LABS: Anion Gap 14 mmol/L (10-20); BUN (Urea Nitrogen) 22 mg/dL (9.8-20.1); Calc. Creatinine Clearance 89 mL/min (70-130); Carbon Dioxide 20 mmol/L (23-31); Chloride 108 mmol/L (98-107); Estimated GFR 63; Glucose 137 mg/dL (83-110); Potassium 4.3 mmol/L (3.5-5.1); Sodium 138 mmol/L (136-145)
[2023-10-27 08:09] LABS: Magnesium 1.6 mg/dL (1.6-2.6)
[2023-10-27] MEDS: Ranolazine ER 500 MG TAB PO SCH (20:53)
[2023-10-28 07:16] LABS: Anion Gap 17 mmol/L (10-20); BUN (Urea Nitrogen) 19 mg/dL (9.8-20.1); Calc. Creatinine Clearance 94 mL/min (70-130); Carbon Dioxide 18 mmol/L (23-31); Chloride 108 mmol/L (98-107); Estimated GFR 67; Glucose 133 mg/dL (83-110); Magnesium 1.4 mg/dL (1.6-2.6); Potassium 4.5 mmol/L (3.5-5.1); Sodium 138 mmol/L (136-145)
[2023-10-28 07:38] LABS: Hematocrit 36.5 % (36.0-47.0); Hemoglobin 11.7 g/dL (12.0-16.0); Platelet Count 206 10x3/uL (130-400)
[2023-10-29] MEDS: Sodium Chloride 0.9% 1,000 ML IV SCH (12:33)
[2023-10-30 08:51] VITALS: TEMP 97.7
[2023-10-30 12:36] VITALS: BP 144/77
== END 2023-10-30 16:16 | DRG 280 ==
LOC: ERS 23:08 → ERHOLD 10-24 04:53 → 2SW 10-24 16:48 → OBSVTOIN 10-25 16:44 → 2SE 10-25 17:40
PROVIDERS: ADMIT Student in an Organized Health Care Education/Training Program; ATTEND Internal Medicine
DX: I21.4 Non-ST elevation (NSTEMI) myocardial infarction (principal); I63.9 Cerebral infarction, unspecified; N17.9 Acute kidney failure, unspecified; R53.81 Other malaise; I10 Essential (primary) hypertension; E78.5 Hyperlipidemia, unspecified; I25.10 Atherosclerotic heart disease of native coronary artery without angina pectoris; E11.9 Type 2 diabetes mellitus without complications; E66.01 Morbid (severe) obesity due to excess calories; K21.9 Gastro-esophageal reflux disease without esophagitis; D72.829 Elevated white blood cell count, unspecified; E03.9 Hypothyroidism, unspecified; Z79.899 Other long term (current) drug therapy; Z79.4 Long term (current) use of insulin; Z79.890 Hormone replacement therapy; Z79.82 Long term (current) use of aspirin; Z90.710 Acquired absence of both cervix and uterus; Z90.49 Acquired absence of other specified parts of digestive tract; Z90.89 Acquired absence of other organs; Z98.890 Other specified postprocedural states; Z68.38 Body mass index [BMI] 38.0-38.9, adult
CPT/HCPCS: 36415; 36416; 70450; 70551; 71045; 71275; 74174; 80048; 80053; 80061; 83036; 83735; 83880; 84443; 84484; 85014; 85018; 85025; 85049; 93005; 93010; 93306; 93880; 96372; 96374; 96375; 96376; G0378; J1650; J1815; J2270; J2405; J3475; J7050; J7120; Q9967

== ENCOUNTER 2023-11-20 21:24 | Inpatient (IN) | payer MEDICARE ==
[2023-11-20] MEDS ORDERED: Nitroglycerin 2% Ointment 1 INCH/1 GM Packet ONE (22:56)
[2023-11-20 23:02] LABS: #Basophils 0.03 10x3/uL (0.0-0.2); %Basophils 0.3 % (0.0-1.0); %Eosinophils 0.9 % (0.0-10.0); %Lymphocytes 12.6 % (21.0-51.0); %Monocytes 9.3 % (0.0-10.0); %Neutrophils 76.2 % (42.0-75.0); Hematocrit 42.9 % (36.0-47.0); Hemoglobin 13.5 g/dL (12.0-16.0); Mean Corpuscular HGB CONC 31.5 g/dL (32.0-36.0); Mean Corpuscular Hemoglobin 29.1 pg (27.0-31.0); Mean Corpuscular Volume 92.5 fL (78.0-98.0); Mean Platelet Volume 10.4 fL (7.4-10.4); Platelet Count 298 10x3/uL (130-400); RBC Distribution Width 15.9 % (11.5-14.5); Red Blood Cell (RBC) Count 4.64 mill/uL (4.20-5.40)
[2023-11-20 23:17] LABS: ALT (SGPT) 6 U/L (8-55); AST (SGOT) 12 U/L (5-34); Albumin 3.1 g/dL (3.4-4.8); Alkaline Phosphatase 32 U/L (40-110); Anion Gap 18 mmol/L (10-20); BUN (Urea Nitrogen) 29 mg/dL (9.8-20.1); Bilirubin, Total 0.5 mg/dL (0.2-1.2); Calc. Creatinine Clearance 0 mL/min (70-130); Calcium 9.8 mg/dL (7.8-10.44); Carbon Dioxide 19 mmol/L (23-31); Chloride 104 mmol/L (98-107); Estimated GFR 36; Globulin 3.4 g/dL (2.4-3.5); Glucose 209 mg/dL (83-110); Lipase 19 U/L (8-78); Potassium 5.2 mmol/L (3.5-5.1); Protein, Total 6.5 g/dL (5.8-8.1); Sodium 136 mmol/L (136-145)
[2023-11-21 04:32] VITALS: BMI 37.2
[2023-11-21] MEDS ORDERED: Ondansetron PF 4 MG/2 ML Vial IVP PRN (08:27)
[2023-11-21] MEDS ORDERED: Acetaminophen 650 MG Suppository PR PRN (08:27)
[2023-11-21] MEDS ORDERED: Ondansetron ODT 4 MG TAB PO PRN (08:27)
[2023-11-21] MEDS ORDERED: Meclizine HCl 12.5 MG TAB PO PRN (08:30)
[2023-11-21] MEDS ORDERED: Dextrose 5% in Water 1,000 ML IV PRN (08:32)
[2023-11-21] MEDS ORDERED: Dextrose 50% Abboject 50 ML SYRINGE SLOW IVP PRN (08:32)
[2023-11-21] MEDS ORDERED: Glucagon 1 MG/ML KIT IM PRN (08:32)
[2023-11-21] MEDS ORDERED: Morphine 2 MG/ML VIAL SLOW IVP PRN (08:52)
[2023-11-21] MEDS ORDERED: Morphine 4 MG/ML VIAL SLOW IVP PRN (08:52)
[2023-11-21] MEDS: Aspirin 81 mg Enteric Coated Tablet PO SCH (09:27)
[2023-11-21] MEDS: Ranolazine ER 500 MG TAB PO SCH (09:27)
[2023-11-21] MEDS: Empagliflozin 25 MG TAB PO SCH (09:27)
[2023-11-21] MEDS: Pantoprazole DR 40 MG TAB PO SCH (09:27)
[2023-11-21] MEDS: Clopidogrel Bisulfate 75 MG TAB PO SCH (09:27)
[2023-11-21] MEDS: Cyanocobalamin (Vitamin B-12) 1,000 MCG TAB PO SCH (09:27)
[2023-11-21] MEDS: Isosorbide Mononitrate 60 MG ER.TAB PO SCH (09:27)
[2023-11-21 09:50] LABS: Troponin I 6.066 ng/mL (< 0.028)
[2023-11-21 11:03] LABS: Hematocrit 38.9 % (36.0-47.0); Hemoglobin 12.6 g/dL (12.0-16.0); Platelet Count 282 10x3/uL (130-400)
[2023-11-21] MEDS: Cholecalciferol 1,000 UNITS (25 MCG) TAB PO SCH (11:18)
[2023-11-21] MEDS: Metoprolol Tartrate 25 MG TAB PO SCH (11:18)
[2023-11-21 11:37] LABS: Troponin I 7.096 ng/mL (< 0.028)
[2023-11-21] MEDS: Heparin 10,000 UNITS/ 10 ML VIAL SLOW IVP SCH (11:51)
[2023-11-21] MEDS: Heparin 25,000 units/D5W 500 ML IVPB SCH (11:51)
[2023-11-21] MEDS: Senokot S 8.6-50 MG TAB PO SCH (16:19)
[2023-11-21] MEDS: Acetaminophen 325 MG TAB PO PRN (18:22)
[2023-11-21] MEDS: Fenofibrate Nanocrystallized 145 MG TAB PO SCH (20:33)
[2023-11-21] MEDS: CO Q-10 CAPSULE 100 MG PO SCH (20:33)
[2023-11-21] MEDS: Atorvastatin Calcium 40 MG TAB PO SCH (20:33)
[2023-11-21] MEDS: Loratadine 10 MG TAB PO SCH (20:34)
[2023-11-22 02:45] LABS: #Basophils 0.03 10x3/uL (0.0-0.2); %Basophils 0.4 % (0.0-1.0); %Eosinophils 2.2 % (0.0-10.0); %Lymphocytes 19.2 % (21.0-51.0); %Neutrophils 67.4 % (42.0-75.0); Hematocrit 36.7 % (36.0-47.0); Hemoglobin 11.6 g/dL (12.0-16.0); Mean Corpuscular HGB CONC 31.6 g/dL (32.0-36.0); Mean Corpuscular Hemoglobin 29.1 pg (27.0-31.0); Mean Platelet Volume 10.1 fL (7.4-10.4); Platelet Count 242 10x3/uL (130-400); RBC Distribution Width 15.8 % (11.5-14.5); Red Blood Cell (RBC) Count 3.99 mill/uL (4.20-5.40)
[2023-11-22 03:03] LABS: PTT 148.6 sec (22.9-36.1)
[2023-11-22 03:43] LABS: Anion Gap 13 mmol/L (10-20); BUN (Urea Nitrogen) 34 mg/dL (9.8-20.1); Calc. Creatinine Clearance 48 mL/min (70-130); Calcium 9.1 mg/dL (7.8-10.44); Carbon Dioxide 20 mmol/L (23-31); Chloride 103 mmol/L (98-107); Estimated GFR 31; Glucose 182 mg/dL (83-110); Potassium 4.9 mmol/L (3.5-5.1); Sodium 131 mmol/L (136-145)
[2023-11-22] MEDS: Levothyroxine 150 MCG TAB PO SCH (05:13)
[2023-11-22] MEDS: Lactulose 20 GM (30 mL) UDCUP PO PRN (09:22)
[2023-11-22] MEDS: Spironolactone 25 MG TAB PO SCH (09:23)
[2023-11-22] MEDS: Senokot S 8.6-50 MG TAB PO SCH (09:23)
[2023-11-22 11:20] LABS: Troponin I 4.267 ng/mL (< 0.028)
[2023-11-22] MEDS: Cranberry 500 MG Capsule PO SCH (16:49)
[2023-11-22] MEDS: Enoxaparin 120 MG/0.8 ML SYRINGE SC SCH (17:09)
[2023-11-22] MEDS: Insulin Lispro 100 UNIT/ML 10 ML VIAL SC PRN (22:18)
[2023-11-23 04:51] LABS: ALT (SGPT) 7 U/L (8-55); AST (SGOT) 16 U/L (5-34); Albumin 2.8 g/dL (3.4-4.8); Alkaline Phosphatase 27 U/L (40-110); Anion Gap 13 mmol/L (10-20); BUN (Urea Nitrogen) 30 mg/dL (9.8-20.1); Bilirubin, Total 0.7 mg/dL (0.2-1.2); Calc. Creatinine Clearance 47 mL/min (70-130); Calcium 9.3 mg/dL (7.8-10.44); Carbon Dioxide 21 mmol/L (23-31); Chloride 103 mmol/L (98-107); Estimated GFR 30; Glucose 139 mg/dL (83-110); Potassium 4.2 mmol/L (3.5-5.1); Protein, Total 5.8 g/dL (5.8-8.1); Sodium 133 mmol/L (136-145)
[2023-11-23 04:54] LABS: #Basophils 0.03 10x3/uL (0.0-0.2); %Basophils 0.4 % (0.0-1.0); %Eosinophils 1.8 % (0.0-10.0); %Lymphocytes 14.9 % (21.0-51.0); %Monocytes 9.9 % (0.0-10.0); %Neutrophils 72.1 % (42.0-75.0); Hematocrit 37.8 % (36.0-47.0); Mean Corpuscular HGB CONC 31.7 g/dL (32.0-36.0); Mean Corpuscular Hemoglobin 29.2 pg (27.0-31.0); Mean Platelet Volume 10.4 fL (7.4-10.4); Platelet Count 262 10x3/uL (130-400); RBC Distribution Width 15.6 % (11.5-14.5); Red Blood Cell (RBC) Count 4.11 mill/uL (4.20-5.40)
[2023-11-23 04:57] LABS: Troponin I 2.919 ng/mL (< 0.028)
[2023-11-23] MEDS: Rivaroxaban 2.5 MG TAB PO SCH (09:44)
[2023-11-23] MEDS: Isosorbide Mononitrate 60 MG ER.TAB PO SCH (09:44)
[2023-11-23] MEDS: Valsartan 80 MG TAB PO SCH (09:44)
[2023-11-23] MEDS: Sodium Chloride 0.9% 500 ML IV SCH (17:59)
[2023-11-23] MEDS: GoLYTELY 4,000 ml Bottle PO SCH (17:59)
[2023-11-23 19:25] LABS: Troponin I 1.637 ng/mL (< 0.028)
[2023-11-23] MEDS ORDERED: Enoxaparin 120 MG/0.8 ML SYRINGE SC SCH (21:00)
[2023-11-23] MEDS: Polyethylene Glycol 3350 17 GM Packet PO SCH (21:16)
[2023-11-24 05:13] LABS: #Basophils 0.03 10x3/uL (0.0-0.2); %Basophils 0.4 % (0.0-1.0); %Eosinophils 2.8 % (0.0-10.0); %Monocytes 9.8 % (0.0-10.0); %Neutrophils 72.5 % (42.0-75.0); Hematocrit 37.3 % (36.0-47.0); Hemoglobin 11.8 g/dL (12.0-16.0); Mean Corpuscular HGB CONC 31.6 g/dL (32.0-36.0); Mean Corpuscular Hemoglobin 29.1 pg (27.0-31.0); Mean Corpuscular Volume 91.9 fL (78.0-98.0); Mean Platelet Volume 10.6 fL (7.4-10.4); Platelet Count 239 10x3/uL (130-400); RBC Distribution Width 15.6 % (11.5-14.5); Red Blood Cell (RBC) Count 4.06 mill/uL (4.20-5.40)
[2023-11-24 05:47] LABS: ALT (SGPT) 7 U/L (8-55); AST (SGOT) 14 U/L (5-34); Albumin 2.6 g/dL (3.4-4.8); Alkaline Phosphatase 26 U/L (40-110); Anion Gap 19 mmol/L (10-20); BUN (Urea Nitrogen) 23 mg/dL (9.8-20.1); Bilirubin, Total 0.6 mg/dL (0.2-1.2); Calc. Creatinine Clearance 63 mL/min (70-130); Calcium 8.7 mg/dL (7.8-10.44); Carbon Dioxide 20 mmol/L (23-31); Chloride 102 mmol/L (98-107); Estimated GFR 42; Glucose 106 mg/dL (83-110); Potassium 4.2 mmol/L (3.5-5.1); Protein, Total 5.6 g/dL (5.8-8.1); Sodium 137 mmol/L (136-145)
[2023-11-25 05:20] LABS: #Basophils 0.04 10x3/uL (0.0-0.2); %Basophils 0.6 % (0.0-1.0); %Eosinophils 3.8 % (0.0-10.0); %Lymphocytes 16.9 % (21.0-51.0); %Monocytes 10.1 % (0.0-10.0); Hematocrit 35.5 % (36.0-47.0); Hemoglobin 11.5 g/dL (12.0-16.0); Mean Corpuscular HGB CONC 32.4 g/dL (32.0-36.0); Mean Corpuscular Hemoglobin 28.5 pg (27.0-31.0); Mean Corpuscular Volume 87.9 fL (78.0-98.0); Mean Platelet Volume 10.7 fL (7.4-10.4); Platelet Count 238 10x3/uL (130-400); RBC Distribution Width 15.9 % (11.5-14.5); Red Blood Cell (RBC) Count 4.04 mill/uL (4.20-5.40)
[2023-11-25 05:43] LABS: ALT (SGPT) 7 U/L (8-55); AST (SGOT) 12 U/L (5-34); Albumin 2.5 g/dL (3.4-4.8); Alkaline Phosphatase 25 U/L (40-110); Anion Gap 15 mmol/L (10-20); BUN (Urea Nitrogen) 21 mg/dL (9.8-20.1); Bilirubin, Total 0.6 mg/dL (0.2-1.2); Calc. Creatinine Clearance 64 mL/min (70-130); Calcium 8.7 mg/dL (7.8-10.44); Carbon Dioxide 21 mmol/L (23-31); Chloride 101 mmol/L (98-107); Estimated GFR 43; Globulin 2.8 g/dL (2.4-3.5); Glucose 144 mg/dL (83-110); Protein, Total 5.3 g/dL (5.8-8.1); Sodium 133 mmol/L (136-145)
[2023-11-25] MEDS: Icosapent Ethyl 1 GM CAPSULE PO SCH (08:38)
[2023-11-26 04:36] LABS: #Basophils 0.04 10x3/uL (0.0-0.2); %Basophils 0.5 % (0.0-1.0); %Eosinophils 2.5 % (0.0-10.0); %Lymphocytes 13.4 % (21.0-51.0); %Monocytes 7.4 % (0.0-10.0); %Neutrophils 75.6 % (42.0-75.0); Hematocrit 39.7 % (36.0-47.0); Hemoglobin 12.7 g/dL (12.0-16.0); Mean Corpuscular Hemoglobin 29.2 pg (27.0-31.0); Mean Corpuscular Volume 91.3 fL (78.0-98.0); Mean Platelet Volume 10.5 fL (7.4-10.4); Platelet Count 297 10x3/uL (130-400); RBC Distribution Width 15.8 % (11.5-14.5); Red Blood Cell (RBC) Count 4.35 mill/uL (4.20-5.40)
[2023-11-26 05:05] LABS: ALT (SGPT) 8 U/L (8-55); AST (SGOT) 12 U/L (5-34); Albumin 2.9 g/dL (3.4-4.8); Alkaline Phosphatase 28 U/L (40-110); Anion Gap 15 mmol/L (10-20); BUN (Urea Nitrogen) 23 mg/dL (9.8-20.1); Bilirubin, Total 0.7 mg/dL (0.2-1.2); Calc. Creatinine Clearance 63 mL/min (70-130); Calcium 9.1 mg/dL (7.8-10.44); Carbon Dioxide 21 mmol/L (23-31); Chloride 99 mmol/L (98-107); Estimated GFR 42; Globulin 3.3 g/dL (2.4-3.5); Glucose 155 mg/dL (83-110); Protein, Total 6.2 g/dL (5.8-8.1); Sodium 131 mmol/L (136-145)
[2023-11-27 04:52] LABS: #Basophils Less than 0.03 10x3/uL (0.0-0.2); %Basophils 0.4 % (0.0-1.0); %Eosinophils 3.7 % (0.0-10.0); %Monocytes 8.2 % (0.0-10.0); %Neutrophils 64.9 % (42.0-75.0); Hematocrit 35.8 % (36.0-47.0); Hemoglobin 11.5 g/dL (12.0-16.0); Mean Corpuscular HGB CONC 32.1 g/dL (32.0-36.0); Mean Corpuscular Hemoglobin 29.3 pg (27.0-31.0); Mean Corpuscular Volume 91.3 fL (78.0-98.0); Mean Platelet Volume 10.5 fL (7.4-10.4); Platelet Count 242 10x3/uL (130-400); Red Blood Cell (RBC) Count 3.92 mill/uL (4.20-5.40)
[2023-11-27 05:20] LABS: ALT (SGPT) 7 U/L (8-55); AST (SGOT) 11 U/L (5-34); Albumin 2.6 g/dL (3.4-4.8); Alkaline Phosphatase 25 U/L (40-110); Anion Gap 17 mmol/L (10-20); BUN (Urea Nitrogen) 27 mg/dL (9.8-20.1); Bilirubin, Total 0.8 mg/dL (0.2-1.2); Calc. Creatinine Clearance 63 mL/min (70-130); Calcium 8.6 mg/dL (7.8-10.44); Carbon Dioxide 19 mmol/L (23-31); Chloride 103 mmol/L (98-107); Estimated GFR 42; Glucose 127 mg/dL (83-110); Protein, Total 5.6 g/dL (5.8-8.1); Sodium 135 mmol/L (136-145)
[2023-11-27] MEDS: Amlodipine 5 MG TAB PO SCH (08:57)
[2023-11-28 06:17] LABS: #Basophils Less than 0.03 10x3/uL (0.0-0.2); %Basophils 0.3 % (0.0-1.0); %Eosinophils 2.2 % (0.0-10.0); %Lymphocytes 15.9 % (21.0-51.0); %Monocytes 9.7 % (0.0-10.0); %Neutrophils 71.2 % (42.0-75.0); Hematocrit 37.2 % (36.0-47.0); Hemoglobin 11.8 g/dL (12.0-16.0); Mean Corpuscular HGB CONC 31.7 g/dL (32.0-36.0); Mean Corpuscular Hemoglobin 29.1 pg (27.0-31.0); Mean Corpuscular Volume 91.9 fL (78.0-98.0); Mean Platelet Volume 10.5 fL (7.4-10.4); Platelet Count 244 10x3/uL (130-400); RBC Distribution Width 15.9 % (11.5-14.5); Red Blood Cell (RBC) Count 4.05 mill/uL (4.20-5.40)
[2023-11-28 06:37] LABS: ALT (SGPT) 7 U/L (8-55); AST (SGOT) 11 U/L (5-34); Albumin 2.6 g/dL (3.4-4.8); Alkaline Phosphatase 28 U/L (40-110); Anion Gap 15 mmol/L (10-20); BUN (Urea Nitrogen) 29 mg/dL (9.8-20.1); Bilirubin, Total 0.8 mg/dL (0.2-1.2); Calc. Creatinine Clearance 61 mL/min (70-130); Calcium 8.6 mg/dL (7.8-10.44); Carbon Dioxide 20 mmol/L (23-31); Chloride 104 mmol/L (98-107); Estimated GFR 42; Globulin 3.2 g/dL (2.4-3.5); Glucose 155 mg/dL (83-110); Potassium 4.2 mmol/L (3.5-5.1); Protein, Total 5.8 g/dL (5.8-8.1); Sodium 135 mmol/L (136-145)
[2023-11-29] MEDS ORDERED: Levothyroxine 150 MCG TAB ONE (06:00)
[2023-11-29] MEDS ORDERED: Aspirin 81 mg Enteric Coated Tablet ONE (09:20)
[2023-11-29] MEDS ORDERED: Ranolazine ER 500 MG TAB ONE (09:20)
[2023-11-29] MEDS ORDERED: Senokot S 8.6-50 MG TAB ONE (09:20)
[2023-11-29] MEDS ORDERED: Clopidogrel Bisulfate 75 MG TAB ONE (09:20)
[2023-11-29] MEDS ORDERED: Empagliflozin 25 MG TAB ONE (09:20)
[2023-11-29] MEDS ORDERED: Metoprolol Tartrate 25 MG TAB ONE (09:20)
[2023-11-29] MEDS ORDERED: Cholecalciferol 1,000 UNITS (25 MCG) TAB ONE (09:20)
[2023-11-29] MEDS ORDERED: Spironolactone 25 MG TAB ONE (09:20)
[2023-11-29] MEDS ORDERED: Rivaroxaban 2.5 MG TAB ONE (09:20)
[2023-11-29] MEDS ORDERED: Cyanocobalamin (Vitamin B-12) 1,000 MCG TAB ONE (09:20)
[2023-11-29] MEDS ORDERED: Pantoprazole DR 40 MG TAB ONE (09:20)
[2023-11-29] MEDS ORDERED: Isosorbide Mononitrate 60 MG ER.TAB ONE (09:20)
[2023-11-29] MEDS ORDERED: Amlodipine 5 MG TAB ONE (09:20)
[2023-11-29] MEDS ORDERED: Icosapent Ethyl 1 GM CAPSULE ONE (09:20)
[2023-12-02 04:53] LABS: #Basophils 0.03 10x3/uL (0.0-0.2); %Basophils 0.5 % (0.0-1.0); %Eosinophils 2.8 % (0.0-10.0); %Lymphocytes 20.8 % (21.0-51.0); %Monocytes 14.6 % (0.0-10.0); %Neutrophils 60.1 % (42.0-75.0); Hematocrit 32.7 % (36.0-47.0); Hemoglobin 10.5 g/dL (12.0-16.0); Mean Corpuscular HGB CONC 32.1 g/dL (32.0-36.0); Mean Corpuscular Hemoglobin 29.3 pg (27.0-31.0); Mean Corpuscular Volume 91.3 fL (78.0-98.0); Mean Platelet Volume 10.5 fL (7.4-10.4); Platelet Count 279 10x3/uL (130-400); RBC Distribution Width 16.3 % (11.5-14.5); Red Blood Cell (RBC) Count 3.58 mill/uL (4.20-5.40)
[2023-12-02 05:09] LABS: Anion Gap 16 mmol/L (10-20); BUN (Urea Nitrogen) 26 mg/dL (9.8-20.1); Calc. Creatinine Clearance 68 mL/min (70-130); Calcium 8.8 mg/dL (7.8-10.44); Carbon Dioxide 18 mmol/L (23-31); Chloride 105 mmol/L (98-107); Estimated GFR 48; Glucose 158 mg/dL (83-110); Sodium 135 mmol/L (136-145)
[2023-12-02 11:07] VITALS: BMI 35.9
[2023-12-02] MEDS: Benzonatate 100 MG CAP PO PRN (21:36)
[2023-12-03] MEDS: Isosorbide Mononitrate 60 MG ER.TAB PO SCH (10:55)
[2023-12-03 17:03] VITALS: BP 103/57; TEMP 98.1
== END 2023-12-03 17:50 | DRG 281 ==
LOC: ERS 21:24 → 2NO 11-21 02:28 → OBSVTOIN 11-22 09:33
PROVIDERS: ADMIT Family Medicine; ATTEND Family Medicine
DX: I21.4 Non-ST elevation (NSTEMI) myocardial infarction (principal); N17.9 Acute kidney failure, unspecified; K21.9 Gastro-esophageal reflux disease without esophagitis; E03.9 Hypothyroidism, unspecified; Z95.5 Presence of coronary angioplasty implant and graft; Z90.710 Acquired absence of both cervix and uterus; Z90.49 Acquired absence of other specified parts of digestive tract; Z90.89 Acquired absence of other organs; I25.10 Atherosclerotic heart disease of native coronary artery without angina pectoris; K59.00 Constipation, unspecified; Z79.82 Long term (current) use of aspirin; Z79.899 Other long term (current) drug therapy; E78.00 Pure hypercholesterolemia, unspecified; Z86.73 Personal history of transient ischemic attack (TIA), and cerebral infarction without residual deficits; E66.01 Morbid (severe) obesity due to excess calories; Z68.35 Body mass index [BMI] 35.0-35.9, adult; Z79.4 Long term (current) use of insulin; N18.30 Chronic kidney disease, stage 3 unspecified; I12.9 Hypertensive chronic kidney disease with stage 1 through stage 4 chronic kidney disease, or unspecified chronic kidney disease; E11.22 Type 2 diabetes mellitus with diabetic chronic kidney disease; S82.832A Other fracture of upper and lower end of left fibula, initial encounter for closed fracture; W18.30XA Fall on same level, unspecified, initial encounter
CPT/HCPCS: 36415; 36416; 71045; 80048; 80053; 83690; 84484; 85014; 85018; 85025; 85049; 85730; 93005; 93798; 96372; 96374; G0378; J1644; J1650; J1815; J7050

== ENCOUNTER 2025-03-24 02:05 | Observation (INO) | payer MEDICARE ==
[2025-03-24 02:33] LABS: #Basophils 0.07 10x3/uL (0.0-0.2); #Eosinophils 0.20 10x3/uL (0.0-0.7); #Monocytes 0.83 10x3/uL (0.11-0.59); #Neutrophils 3.94 10x3/uL (1.40-6.50); %Basophils 1.1 % (0.0-1.0); %Eosinophils 3.0 % (0.0-10.0); %Lymphocytes 23.1 % (21.0-51.0); %Monocytes 12.6 % (0.0-10.0); %Neutrophils 59.6 % (42.0-75.0); Hematocrit 43.7 % (36.0-47.0); Hemoglobin 13.6 g/dL (12.0-16.0); Mean Corpuscular Hemoglobin 29.5 pg (27.0-31.0); Mean Corpuscular Volume 94.8 fL (78.0-98.0); Platelet Count 217 10x3/uL (130-400); Red Blood Cell (RBC) Count 4.61 mill/uL (4.20-5.40); White Blood Cell (WBC) Count 6.61 10x3/uL (4.8-10.8)
[2025-03-24 02:49] LABS: ALT (SGPT) Less than 7 U/L (Less than 34); AST (SGOT) 18 U/L (11-34); Albumin 3.5 g/dL (3.1-4.5); Alkaline Phosphatase 46 U/L (40-110); Anion Gap 18 mmol/L (10-20); BUN (Urea Nitrogen) 34 mg/dL (9.8-20.1); Bilirubin, Total 0.4 mg/dL (0.3-1.2); Calc. Creatinine Clearance 0 mL/min (70-130); Calcium 9.8 mg/dL (7.8-10.44); Carbon Dioxide 22 mmol/L (23-31); Chloride 104 mmol/L (98-107); Globulin 3.2 g/dL (2.4-3.5); Glucose 196 mg/dL (83-110); Lipase 19 U/L (8-78); Potassium 4.7 mmol/L (3.5-5.1); Sodium 139 mmol/L (136-145)
[2025-03-24 09:09] LABS: CAUTI Indications for Culture Pelvic or flank pain; Glucose, Urine (Dipstick) Greater than 1000 mg/dL (Negative); Leukocyte 500 Leu/uL (Negative); Protein, Urine (Dipstick) Negative (Neg-Trace); RBC/HPF 0-3 HPF (0-3); Specific Gravity, Urine 1.007 (1.002-1.036); WBC/HPF Greater than 50 HPF (0-3)
[2025-03-24 09:12] LABS: Bacteria/HPF 1+ HPF (None Seen)
[2025-03-24 09:13] LABS: Urine Culture Reflex Yes Yes
[2025-03-24] MEDS ORDERED: Nystatin Powder 15 GM BOT TOP PRN (09:31)
[2025-03-24] MEDS ORDERED: Glucagon 1 MG/ML KIT IM PRN (09:34)
[2025-03-24] MEDS ORDERED: Dextrose 50% Abboject 50 ML SYRINGE SLOW IVP PRN (09:34)
[2025-03-24] MEDS ORDERED: Nitroglycerin 0.4 MG TAB (25 Tab Bottle) SL PRN ×2 (09:34→17:05)
[2025-03-24] MEDS ORDERED: Ondansetron PF 4 MG/2 ML Vial IVP PRN (09:34)
[2025-03-24] MEDS ORDERED: Acetaminophen 325 MG TAB PO PRN (09:34)
[2025-03-24] MEDS ORDERED: Senokot S 8.6-50 MG TAB PO PRN (09:34)
[2025-03-24] MEDS ORDERED: Electrolyte Replacement Protocol 1 EACH FS SCH (09:45)
[2025-03-24] MEDS ORDERED: cefTRIAXone (ROCEPHIN) 1 GM VIAL ONE (09:48)
[2025-03-24] MEDS: cefTRIAXone\\ROCEPHIN 1 GM in Sodium Chloride 0.9% 100 ML IVPB SCH (09:56)
[2025-03-24] MEDS ORDERED: Potassium Chloride 20 MEQ in Premix 1 BAG IVPB PRN (10:00)
[2025-03-24] MEDS ORDERED: PHOS-NAK 1 PKT PACK PO PRN (10:00)
[2025-03-24] MEDS ORDERED: Pantoprazole 40 MG DR.TAB ONE (10:18)
[2025-03-24] MEDS: Pantoprazole 40 MG DR.TAB PO SCH (10:25)
[2025-03-24] MEDS: Isosorbide Mononitrate 60 MG ER.TAB PO SCH (10:25)
[2025-03-24 12:22] LABS: Magnesium 1.6 mg/dL (1.6-2.6)
[2025-03-24 14:23] VITALS: BMI 36.2
[2025-03-24] MEDS ORDERED: Communication Order-Pharmacy FS SCH (15:30)
[2025-03-24] MEDS ORDERED: Adenosine 6 mg (2 mL) VIAL ONE (15:37)
[2025-03-24] MEDS ORDERED: Heparin 10,000 UNITS/ 10 ML VIAL ONE (15:37)
[2025-03-24] MEDS ORDERED: Nitroglycerin 50 MG/250 ML BOT 250 ML ONE (15:38)
[2025-03-24] MEDS ORDERED: PHENYLEPHRINE-NS 100 MCG/ML 10 ML SYRINGE ONE (15:38)
[2025-03-24] MEDS ORDERED: Lidocaine 1% (PF) 30 ML VIAL ONE (15:38)
[2025-03-24] MEDS ORDERED: Acetaminophen/Codeine 30-300mg Tablet PO PRN ×2 (17:05)
[2025-03-24] MEDS: Insulin Glargine 30 UNITS/0.3 ML VIAL SC SCH (22:18)
[2025-03-24] MEDS: Magnesium 2 GM/50 ML(in water) 2 GM in Premix 1 BAG IVPB PRN (22:21)
[2025-03-25 04:29] LABS: #Basophils 0.03 10x3/uL (0.0-0.2); #Eosinophils 0.14 10x3/uL (0.0-0.7); #Monocytes 0.64 10x3/uL (0.11-0.59); #Neutrophils 3.26 10x3/uL (1.40-6.50); %Basophils 0.6 % (0.0-1.0); %Eosinophils 2.7 % (0.0-10.0); %Lymphocytes 22.7 % (21.0-51.0); %Monocytes 12.1 % (0.0-10.0); %Neutrophils 61.7 % (42.0-75.0); Hematocrit 40.9 % (36.0-47.0); Hemoglobin 12.9 g/dL (12.0-16.0); Mean Corpuscular Hemoglobin 29.8 pg (27.0-31.0); Mean Corpuscular Volume 94.5 fL (78.0-98.0); Platelet Count 187 10x3/uL (130-400); Red Blood Cell (RBC) Count 4.33 mill/uL (4.20-5.40); White Blood Cell (WBC) Count 5.28 10x3/uL (4.8-10.8)
[2025-03-25 04:50] LABS: Anion Gap 13 mmol/L (10-20); BUN (Urea Nitrogen) 24 mg/dL (9.8-20.1); Calc. Creatinine Clearance 80 mL/min (70-130); Calcium 8.9 mg/dL (7.8-10.44); Carbon Dioxide 22 mmol/L (23-31); Chloride 108 mmol/L (98-107); Glucose 146 mg/dL (83-110); Potassium 4.5 mmol/L (3.5-5.1); Sodium 138 mmol/L (136-145)
[2025-03-25] MEDS: Levothyroxine 150 MCG TAB PO SCH (05:35)
[2025-03-25] MEDS ORDERED: Isosorbide Mononitrate 60 MG ER.TAB PO SCH (09:00)
[2025-03-25] MEDS: Enoxaparin 40 MG (0.4 mL) SYRINGE SC SCH (09:55)
[2025-03-25] MEDS: Pantoprazole 40 MG DR.TAB PO SCH (09:59)
[2025-03-25] MEDS: Spironolactone 25 MG TAB PO SCH (09:59)
[2025-03-25] MEDS: Nitroglycerin 0.6mg/Hour PATCH TD SCH (10:00)
[2025-03-25] MEDS: Aspirin 81 mg Enteric Coated Tablet PO SCH (10:00)
[2025-03-25] MEDS: PNEUMOC 20-VAL CONJ-DIP CRM/PF 0.5 ML SYRINGE IM ONE (13:15)
[2025-03-25 16:36] VITALS: BP 127/80; TEMP 97.8
[2025-03-25] MEDS ORDERED: [UNRECOGNIZED DRUG - OTHER] TOP SCH (21:00)
[2025-03-26] MEDS ORDERED: FLU (Fluad Triv) 25-26 (65UP)PF 45 MCG/0.5 ML Syringe IM ONE (09:00)
== END 2025-03-25 17:00 | disposition home or self-care (01) ==
LOC: ERS 02:05 → ERHOLD 06:01 → 2SE 13:44
PROVIDERS: ADMIT Internal Medicine; ATTEND Family Medicine
DX: I25.118 Atherosclerotic heart disease of native coronary artery with other forms of angina pectoris (principal); I25.82 Chronic total occlusion of coronary artery; I10 Essential (primary) hypertension; E11.9 Type 2 diabetes mellitus without complications; E78.5 Hyperlipidemia, unspecified; N39.0 Urinary tract infection, site not specified; Z90.49 Acquired absence of other specified parts of digestive tract; Z90.710 Acquired absence of both cervix and uterus; Z79.899 Other long term (current) drug therapy
CPT/HCPCS: 71045; 80048; 80053; 81001; 82962 ×2; 83690; 83735; 83880; 84484 ×2; 85025 ×2; 87077; 87086; 90677; 93005; 93458; 94760; 97530; 97535; 99285; C1769 ×2; C1894; G0009; J0696 ×2; J1644; J1650; J1815; J2003; J2250; J3010; J3475; J7030 ×2; 36415; 36416; 87186; 90471; 99152; 99153; J0153; J0461

== ENCOUNTER 2025-04-28 14:32 | Outpatient (CLI) | payer MEDICARE | END 2025-04-28 14:33 | disposition home or self-care (01) | LOC: BICMAMMO 14:32 | PROVIDERS: ATTEND Internal Medicine | DX: Z12.31 Encounter for screening mammogram for malignant neoplasm of breast (principal); M85.851 Other specified disorders of bone density and structure, right thigh; M85.852 Other specified disorders of bone density and structure, left thigh; Z78.0 Asymptomatic menopausal state; Z91.89 Other specified personal risk factors, not elsewhere classified | CPT/HCPCS: 77063; 77067; 77080 ==